=== PATIENT | female | born 1980 | race Caucasian/White ===

== ENCOUNTER 2018-06-13 05:23 | Emergency (ER) | payer MEDICAID ==
[2018-06-13] MEDS ORDERED: KETOROLAC 30 MG/ML VIAL IM ONE (05:55)
[2018-06-13] MEDS ORDERED: ORPHENADRINE CITRATE 60MG/2ML VIAL IM ONE (05:55)
--- NOTE | 2018-06-13 06:02 | Emergency Department Record ---
History of Present Illness - General Chief Complaint: Back Pain/Injury Stated Complaint: BACK PAIN Time Seen by Provider: 06/13/18 05:42 Source: Patient Mode of Arrival: Ambulatory Limitations: No limitations - History of Present Illness Initial Comments: pt injured her back 06/01 and has been taking motrin. 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 she woke up this morning and had difficulty turning her head and pain in her neck and thoracic area. she denies numbness or weakness Complaint: Back pain, Back injury Onset/Timin -: Days(s) Similar Symptoms Previously: No Place: Home Radiation: None Severity: Severe Severity scale (1-10): 10 Quality: Dull, Sharp, Stabbing Consistency: Constant, Getting worse Improves With: Medication, Other Worsens With: Movement Context: Bending, While lifting Associated Symptoms: Denies other symptoms Treatments Prior to Arrival: Heat therapy, NSAIDS - Related Data Home Medications Medication Instructions Recorded Confirmed Last Taken Amlodipine Besylate [Norvasc] 5 mg PO DAILY 06/13/18 06/13/18 Unknown Colestipol HCl 1 gm PO BID 06/13/18 06/13/18 Unknown Gabapentin [Neurontin] 600 mg PO TID 06/13/18 06/13/18 Unknown Hydroxychloroquine Sulfate 200 mg PO DAILY 06/13/18 06/13/18 Unknown [Plaquenil] Lacosamide [Vimpat] 100 mg PO BID 06/13/18 06/13/18 Unknown Mycophenolate Mofetil [Cellcept] 500 mg PO BID 06/13/18 06/13/18 Unknown Trazodone HCl 50 mg PO QHS 06/13/18 06/13/18 Unknown Vortioxetine Hydrobromide 20 mg PO DAILY 06/13/18 06/13/18 Unknown [Brintellix] Previous Rx's Medication Instructions Recorded Cyclobenzaprine HCl [Flexeril] 10 mg PO TID #14 tablet 06/13/18 Hydrocodone/Acetaminophen [[place] 1 each PO Q6HR #7 tablet 06/13/18 5-325 Tablet] Ibuprofen [Motrin 600Mg] 600 mg PO Q6H #20 tablet 06/13/18 Allergies Allergy/AdvReac Type Severity Reaction Status Date / Time levofloxacin [From Levaquin] Allergy SWELLING Verified 06/13/18 05:39 (GENERAL) Penicillins Allergy ANAPHYLAXIS Verified 06/13/18 05:39 Travel Screening - Travel/Exposure Within Last 30 Days Have you traveled within the last 30 days?: No - Travel/Exposure Within Last Year Have you traveled outside the [place] in the last year?: No - Additonal Travel Details Have you been exposed to anyone with a communicable illness?: No - Travel Symptoms Symptom Screening: None Review of Systems Reviewed: No additional complaints except as noted below Constitutional: Reports: As per HPI. Denies: Chills, Fever, Malaise, Night sweats, Weakness, Weight change Eyes: Reports: As per HPI. Denies: Eye discharge, Eye pain, Photophobia, Vision change ENT: Reports: As per HPI. Denies: Congestion, Dental pain, Ear pain, Epistaxis , Hearing loss, Throat pain Respiratory: Reports: As per HPI. Denies: Cough, Dyspnea, Hemoptysis, Stridor, Wheezes Cardiovascular: Reports: As per HPI. Denies: Arrhythmia, Chest pain, Dyspnea on exertion, Edema, Murmurs, Orthopnea, Palpitations, Paroxysmal nocturnal dyspnea, Rheumatic Fever, Syncope Endocrine: Reports: As per HPI. Denies: Fatigue, Heat or cold intolerance, Polydipsia, Polyuria Gastrointestinal: Reports: As per HPI. Denies: Abdominal pain, Constipation, Diarrhea, Hematemesis, Hematochezia, Melena, Nausea, Vomiting Genitourinary: Reports: As per HPI. Denies: Abnormal menses, Discharge, Dyspareunia, Dysuria, Frequency, Hematuria, Incontinence, Retention, Urgency Musculoskeletal: Reports: As per HPI, Back pain, Neck pain. Denies: Arthralgia , Gout, Joint swelling, Myalgia Skin: Reports: As per HPI. Denies: Bruising, Change in color, Change in hair/ nails, Lesions, Pruritus, Rash Neurological: Reports: As per HPI. Denies: Abnormal gait, Confusion, Headache, Numbness, Paresthesias, Seizure, Tingling, Tremors, Vertigo, Weakness Psychiatric: Reports: As per HPI. Denies: Anxiety, Auditory hallucinations, Depression, Homicidal thoughts, Suicidal thoughts, Visual hallucinations Hematological/Lymphatic: Reports: As per HPI. Denies: Anemia, Blood Clots, Easy bleeding, Easy bruising, Swollen glands Past Medical History - SOCIAL HISTORY Smoking Status: Current every day smoker Alcohol Use: None Drug Use: None - RESPIRATORY Hx Respiratory Disorders: No - CARDIOVASCULAR Hx Cardio Disorders: No - NEURO Hx Neuro Disorders: Yes Hx Seizures: Yes (last one about 5 years ago) - GI Hx GI Disorders: Yes Hx Irritable Bowel: Yes - Hx Genitourinary Disorders: Yes Hx UTI: Yes Comment:: lupus - ENDOCRINE Hx Endocrine Disorders: No - MUSCULOSKELETAL Hx Musculoskeletal Disorders: No - PSYCH Hx Psych Problems: Yes Hx Depression: Yes - HEMATOLOGY/ONCOLOGY Hx Hematology/Oncology Disorders: Yes Hx Cancer: Yes (cervical) Hx Chemotherapy: Yes (2011) Family Medical History Any Significant Family History?: No Physical Exam - General General Appearance: Alert, Oriented x3, Cooperative, Mild distress - Head Head exam: Normal inspection - Eye Eye exam: Normal appearance, PERRL, EOMI Pupils: Normal accommodation - ENT ENT exam: Normal exam, Mucous membranes moist, Normal external ear exam, Normal orophraynx Ear exam: Normal external inspection. negative: External canal tenderness Nasal Exam: Normal inspection. negative: Discharge, Sinus tenderness Mouth exam: Normal external inspection, Tongue normal Teeth exam: Normal inspection. negative: Dental caries Throat exam: Normal inspection. negative: Tonsillar erythema, Tonsillar exudate - Neck Neck exam: Tenderness (in musculature). negative: Normal inspection, Full ROM - Respiratory Respiratory exam: Normal lung sounds bilaterally. negative: Respiratory distress - Cardiovascular Cardiovascular Exam: Normal rhythm, Normal heart sounds, Tachycardia - GI/Abdominal GI/Abdominal exam: Soft, Normal bowel sounds. negative: Tenderness - Rectal Rectal exam: Deferred - exam: Deferred - Extremities Extremities exam: Normal inspection, Full ROM, Normal capillary refill. negative: Tenderness - Back Back exam: Reports: Normal inspection, Full ROM. Denies: Muscle spasm, Rash noted, Tenderness - Neurological Neurological exam: Alert, CN II-XII intact, Normal gait, Oriented X3 - Psychiatric Psychiatric exam: Normal affect, Normal mood - Skin Skin exam: Dry, Intact, Normal color, Warm Course Vital Signs 06/13/18 05:30 Temperature 98.1 F Pulse Rate 107 H Respiratory 18 Rate Blood Pressure 126/85 Pulse Ox 99 - Reevaluation(s) Reevaluation #1: 06/13/18 07:13 pt feels better Disposition Disposition: Discharge Clinical Impression: Cervical strain, acute Qualifiers: Encounter type: initial encounter Qualified Code(s): S16.1XXA - Strain of muscle, fascia and tendon at neck level, initial encounter Disposition: Home, Self-Care Condition: (1) Good Instructions: Cervical Strain (ED) Additional Instructions: follow up with family doctor. return sooner if worse. ice to sore areas rotated w moist heat Prescriptions: Hydrocodone/Acetaminophen [[place] 5-325 Tablet] 1 each PO Q6HR #7 tablet Cyclobenzaprine HCl [Flexeril] 10 mg PO TID #14 tablet Ibuprofen [Motrin 600Mg] 600 mg PO Q6H #20 tablet Forms: Patient Portal Access Quality - Quality Measures Quality Measures: N/A - Blood Pressure Screening Does Patient Have Any of the Following: No Blood Pressure Classification: Pre-Hypertensive BP Reading Systolic Measurement: 126 Diastolic Measurement: 85 Screening for High Blood Pressure: < Pre-Hypertensive BP, F/U Documented > [ G8950] Pre-Hypertensive Follow-up Interventions: Follow-up with rescreen every year.
--- NOTE | 2018-06-15 06:21 | RADIOLOGY REPORT ---
DATE: 06/13/2018 at 6:15 a.m. EXAM: AP AND LATERAL CERVICAL SPINE. HISTORY: LEFT-SIDED UPPER NECK PAIN RADIATING DOWN TO THE LEFT HIP. FALL ON JUNE 01. TECHNIQUE: AP, lateral, and odontoid views of the cervical spine were obtained. COMPARISON: Thoracic spine series from the same date. FINDINGS: There is normal cervical alignment. The craniocervical and cervical thoracic junctions are normal. The intervertebral disc spaces and vertebral body heights are maintained. There are no significant degenerative changes. There is no acute fracture, subluxation, or prevertebral soft tissue swelling. IMPRESSION: NORMAL CERVICAL SPINE. JOB NUMBER: [id number] MTDD
--- NOTE | 2018-06-15 06:25 | RADIOLOGY REPORT ---
DATE: 06/13/2018 at 6:24 a.m. EXAM: THREE-VIEW THORACIC SPINE. HISTORY: LIFTING INJURY AND FALL. LEFT UPPER NECK PAIN WITH RADIATION DOWN THE LEFT SIDE INTO THE LEFT HIP. TECHNIQUE: AP, lateral, and swimmer's views of the thoracic spine were obtained. COMPARISON: None. FINDINGS: There is levoconvex curvature within the thoracic spine which may be positional in nature. The thoracic alignment is otherwise normal. The thoracic intervertebral disc spaces and vertebral body heights are maintained. There is no acute fracture, subluxation, or destructive process. The visualized ribs appear intact. IMPRESSION: 1. MILD LEVOCONVEX CURVATURE WHICH MAY BE POSITIONAL IN NATURE. 2. NO ACUTE THORACIC SPINE PATHOLOGY. JOB NUMBER: [id number] MTDD
== END 2018-06-13 07:28 | disposition home or self-care (01) ==
LOC: ER 05:23
DX: S16.1XXA Strain of muscle, fascia and tendon at neck level, initial encounter (principal); M54.6 Pain in thoracic spine; X58.XXXA Exposure to other specified factors, initial encounter; F17.210 Nicotine dependence, cigarettes, uncomplicated; Y92.009 Unspecified place in unspecified non-institutional (private) residence as the place of occurrence of the external cause
CPT/HCPCS: 99283; 96372; 99284; 72040; 72072; J1885; J2360

== ENCOUNTER 2018-08-08 19:25 | Emergency (ER) | payer MEDICAID ==
[2018-08-08] MEDS ORDERED: DIPHENHYDRAMINE HCL 50 MG/ML VIAL IVP ONE (19:36)
[2018-08-08] MEDS ORDERED: KETOROLAC 30 MG/ML VIAL IVP ONE (19:36)
[2018-08-08] MEDS ORDERED: METOCLOPRAMIDE HCL 10 MG/2 ML VIAL IVP ONE (19:36)
--- NOTE | 2018-08-08 19:43 | Emergency Department Record ---
History of Present Illness - General Chief Complaint: Headache Migraine Stated Complaint: HEADACHE,VOMITING,SINUS INFECT Time Seen by Provider: 08/08/18 19:28 Source: Patient Mode of Arrival: Ambulatory Limitations: No limitations - History of Present Illness Initial Comments: 38 yo female presents to ED for evaluation of headache symptoms similar to previous migraine headaches that began earlier today. Patient does however report nausea/vomiting today which is different from her usual headaches. Patient denies fever/stiff neck symptoms, does however report a history of cervical cancer now in remission ([id number]) as well as Lupus and RA that she takes plaquenel for. Patient tried taking Ibuprofen earlier today but vomited the medication back up. MD Complaint: Headache Onset/Timin -: Days(s) Onset Description: Gradual Location: Diffuse Severity: Moderate Quality: Throbbing, Similar to previous headaches Consistency: Constant Improves With: Nothing Worsens With: None Associated Symptoms: Nausea, Vomiting Treatments Prior to Arrival: Ibuprofen - Related Data Home Medications Medication Instructions Recorded Confirmed Last Taken Vortioxetine Hydrobromide 20 mg PO DAILY 08/08/18 08/08/18 Unknown [Trintellix] Previous Rx's Medication Instructions Recorded Ibuprofen [Motrin 600Mg] 600 mg PO Q6H #20 tablet 06/13/18 Doxycycline Hyclate 100 mg PO BID #19 tab. 08/08/18 Allergies Allergy/AdvReac Type Severity Reaction Status Date / Time levofloxacin [From Levaquin] Allergy SWELLING Verified 06/13/18 05:39 (GENERAL) Penicillins Allergy ANAPHYLAXIS Verified 06/13/18 05:39 clarithromycin [From Biaxin] AdvReac VOMITING Verified 08/08/18 19:39 Review of Systems Constitutional: Denies: Chills, Fever, Malaise, Night sweats Eyes: Denies: Eye discharge, Eye pain ENT: Denies: Congestion, Ear pain Respiratory: Denies: Cough, Dyspnea Cardiovascular: Denies: Chest pain, Dyspnea on exertion Endocrine: Denies: Fatigue, Heat or cold intolerance Gastrointestinal: Reports: Nausea, Vomiting. Denies: Abdominal pain Genitourinary: Denies: Incontinence, Retention Musculoskeletal: Denies: Arthralgia, Back pain Skin: Denies: Bruising, Change in color Neurological: Reports: Headache. Denies: Abnormal gait, Confusion, Seizure Psychiatric: Denies: Anxiety Hematological/Lymphatic: Denies: Anemia, Blood Clots Past Medical History - SOCIAL HISTORY Smoking Status: Current every day smoker Drug Use: None - RESPIRATORY Hx Respiratory Disorders: No - CARDIOVASCULAR Hx Cardio Disorders: No - NEURO Hx Neuro Disorders: Yes Hx Seizures: Yes (last one about 5 years ago) - GI Hx GI Disorders: Yes Hx Irritable Bowel: Yes - Hx Genitourinary Disorders: Yes Hx UTI: Yes Comment:: lupus - ENDOCRINE Hx Endocrine Disorders: No - MUSCULOSKELETAL Hx Musculoskeletal Disorders: No - PSYCH Hx Psych Problems: Yes Hx Depression: Yes - HEMATOLOGY/ONCOLOGY Hx Hematology/Oncology Disorders: Yes Hx Cancer: Yes (cervical) Hx Chemotherapy: Yes (2011) Physical Exam - General General Appearance: Alert, Oriented x3, Cooperative, Moderate distress Limitations: No limitations - Head Head exam: Atraumatic, Normocephalic, Normal inspection Head exam detail: negative: Abrasion, Contusion, Alcocer's sign, General tenderness, Hematoma, Laceration - Eye Eye exam: Normal appearance, PERRL. negative: Conjunctival injection, Periorbital swelling, Periorbital tenderness, Scleral icterus - ENT Ear exam: negative: Auricular hematoma, Auricular trauma Nasal Exam: negative: Active bleeding, Discharge, Dried blood, Foreign body Mouth exam: negative: Drooling, Laceration, Muffled voice, Tongue elevation - Neck Neck exam: Normal inspection. negative: Meningismus, Tenderness - Respiratory Respiratory exam: Normal lung sounds bilaterally. negative: Rales, Respiratory distress, Rhonchi, Stridor - Cardiovascular Cardiovascular Exam: Regular rate, Normal rhythm, Normal heart sounds - GI/Abdominal GI/Abdominal exam: Soft. negative: Rebound, Rigid, Tenderness - Rectal Rectal exam: Deferred - exam: Deferred - Extremities Extremities exam: Normal inspection. negative: Pedal edema, Tenderness - Back Back exam: Denies: CVA tenderness (R), CVA tenderness (L) - Neurological Neurological exam: Alert, CN II-XII intact, Normal gait, Oriented X3. negative : Motor sensory deficit - Psychiatric Psychiatric exam: Normal affect, Normal mood - Skin Skin exam: Normal color. negative: Abrasion Type of lesion: negative: abrasion Course Vital Signs 08/08/18 19:32 Temperature 98.2 F Pulse Rate [ 98 H Pulse Ox Probe] Respiratory 24 Rate Blood Pressure 130/92 [Left Arm] Pulse Ox 98 - Reevaluation(s) Reevaluation #1: 08/08/18 19:41 Patient was seen and examined, hsitory and physical examination are c/w migraine -type headache. Will image the brain with CT as the patient does have cancer history, denies nausea/vomiting with previous migraine headaches. Neurological examination demonstrates no deficits on exam. No meningeal signs on examination. Will treat with Reglan, Toradol, Benadryl, and NS for her headache symptoms. Reevaluation #2: 08/08/18 20:51 CT Brain: No acute intracranial process Maxillary/sphenoid sinusitis Patient was updated on all results, reports significant improvement in her headache symptoms. Will initiate treatment for sinusitis with Doxycycline as directed. Patient appears stable for discharge at this time. Disposition Disposition: Discharge Clinical Impression: Headache Qualifiers: Headache type: unspecified Headache chronicity pattern: acute headache Intractability: not intractable Qualified Code(s): R51 - Headache Sinusitis Qualifiers: Sinusitis location: maxillary Chronicity: unspecified Qualified Code(s): J32.0 - Chronic maxillary sinusitis Disposition: Home, Self-Care Condition: (2) Stable Instructions: Acute Headache (ED) Additional Instructions: Return to ED if your symptoms worsen or if you have any concerns. Doxycycline as directed. Follow-up with your family doctor in 3-5 days as directed. Prescriptions: Doxycycline Hyclate 100 mg PO BID #19 tab.dr Forms: Patient Portal Access Time of Disposition: 20:54 Quality - Quality Measures Quality Measures: N/A - Blood Pressure Screening Does Patient Have Any of the Following: No Blood Pressure Classification: Hypertensive Reading Systolic Measurement: 130 Diastolic Measurement: 92 Screening for High Blood Pressure: < First Hypertensive BP, F/U Documented > [ G8950] First Hypertensive Follow-up Interventions: Referral to alternative/primary care provider.
[2018-08-08] MEDS ORDERED: 0.9 % SODIUM CHLORIDE 1000ML 1,000 ML IV SCH (19:45)
[2018-08-08] MEDS ORDERED: DOXYCYCLINE HYCLATE 100 MG CAPSULE PO ONE (20:55)
--- NOTE | 2018-08-10 10:48 | CT SCAN REPORT ---
EXAM: HEAD CT WITHOUT CONTRAST HISTORY: HEADACHE CAUSING VOMITING AND NAUSEA, SINUS DRAINAGE. TECHNIQUE: Axial CT scan of the head was performed without IV contrast. Comparison: None. FINDINGS: No definite acute intracranial hemorrhage identified. No focal mass effect or midline shift apparent. No definite acute infarct or intracranial mass lesion seen. Moderate membrane thickening inferiorly in the frontal sinuses. Prominent membrane thickening in the ethmoids bilaterally. Cyst or polyp in the left sphenoid sinus with mild membrane thickening elsewhere in the sphenoid sinuses bilaterally. Prominent opacification in both maxillary antra probably representing membrane thickening although likely with a small amount of fluid on the right. The mastoids appear clear. IMPRESSION: 1. NO DEFINITE ACUTE INTRACRANIAL HEMORRHAGE OR FOCAL MASS EFFECT EVIDENT. 2. OPACIFICATION OF THE PARANASAL SINUSES TO VARIABLE DEGREES DETAILED ABOVE , PROBABLY WITH AN AIR FLUID LEVEL IN THE RIGHT MAXILLARY SINUS. JOB NUMBER: [id number] MTDD
== END 2018-08-08 21:06 | disposition home or self-care (01) ==
LOC: ER 19:25
DX: J32.0 Chronic maxillary sinusitis (principal); R51 Headache; R11.2 Nausea with vomiting, unspecified; F17.210 Nicotine dependence, cigarettes, uncomplicated; Z85.41 Personal history of malignant neoplasm of cervix uteri
CPT/HCPCS: 99284 ×2; 96374; 96375; 70450; J1885; J1200; J2765; J7030

== ENCOUNTER 2018-09-03 18:06 | Emergency (ER) | payer MEDICAID ==
--- NOTE | 2018-09-03 18:19 | Emergency Department Record ---
History of Present Illness - General Chief complaint: Extremity Problem Stated complaint: LEFT SHOULDER INJURY Time Seen by Provider: 09/03/18 18:14 Source: Patient Mode of Arrival: Ambulatory Limitations: No limitations - History of Present Illness Initial comments: 38 yo female presents to ED for evaluation of shoulder pain following injury approximately 1 hour ago. 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 Patient reports pain with movement of the shoulder, denies pain below the shoulder. Patient reports a history history of lupus and RA. MD Complaint: Joint pain Onset/Timin -: Hour(s) Location: Left, Shoulder History of Same: No Radiation: Proximal, Distal Severity scale (1-10): 10 Quality: Sharp Consistency: Constant Improves with: Immobilization Worsens with: Exertion Associated Symptoms: Denies other symptoms - Related Data Previous Rx's Medication Instructions Recorded Ibuprofen [Motrin 600Mg] 600 mg PO Q6H #20 tablet 06/13/18 Allergies Allergy/AdvReac Type Severity Reaction Status Date / Time levofloxacin [From Levaquin] Allergy SWELLING Verified 09/03/18 18:09 (GENERAL) Penicillins Allergy ANAPHYLAXIS Verified 09/03/18 18:09 clarithromycin [From Biaxin] AdvReac VOMITING Verified 09/03/18 18:09 Travel Screening - Travel/Exposure Within Last 30 Days Have you traveled within the last 30 days?: No Review of Systems Constitutional: Denies: Chills, Fever, Malaise, Night sweats Eyes: Denies: Eye discharge, Eye pain ENT: Denies: Congestion, Ear pain, Epistaxis Respiratory: Denies: Cough, Dyspnea Cardiovascular: Denies: Chest pain, Dyspnea on exertion Endocrine: Denies: Fatigue, Heat or cold intolerance Gastrointestinal: Denies: Abdominal pain, Nausea, Vomiting Genitourinary: Denies: Incontinence, Retention Musculoskeletal: Reports: Arthralgia. Denies: Back pain, Gout Skin: Denies: Bruising, Change in color Neurological: Denies: Abnormal gait, Confusion, Headache, Seizure Psychiatric: Denies: Anxiety Hematological/Lymphatic: Denies: Anemia, Blood Clots Past Medical History - SOCIAL HISTORY Smoking Status: Current every day smoker Drug Use: None - RESPIRATORY Hx Respiratory Disorders: No - CARDIOVASCULAR Hx Cardio Disorders: No - NEURO Hx Neuro Disorders: Yes Hx Seizures: Yes (last one about 5 years ago) - GI Hx GI Disorders: Yes Hx Irritable Bowel: Yes - Hx Genitourinary Disorders: Yes Hx UTI: Yes Comment:: lupus - ENDOCRINE Hx Endocrine Disorders: No - MUSCULOSKELETAL Hx Musculoskeletal Disorders: No - PSYCH Hx Psych Problems: Yes Hx Depression: Yes - HEMATOLOGY/ONCOLOGY Hx Hematology/Oncology Disorders: Yes Hx Cancer: Yes (cervical) Hx Chemotherapy: Yes (2011) Physical Exam - General General Appearance: Alert, Oriented x3, Cooperative, Moderate distress Limitations: No limitations - Head Head exam: Atraumatic, Normocephalic, Normal inspection Head exam detail: negative: Abrasion, Contusion, Alcocer's sign, General tenderness, Hematoma, Laceration - Eye Eye exam: Normal appearance. negative: Conjunctival injection, Periorbital swelling, Periorbital tenderness, Scleral icterus - ENT Ear exam: negative: Auricular hematoma, Auricular trauma Nasal Exam: negative: Active bleeding, Discharge, Dried blood, Foreign body Mouth exam: negative: Drooling, Laceration, Muffled voice, Tongue elevation - Neck Neck exam: Normal inspection. negative: Meningismus, Tenderness - Respiratory Respiratory exam: Normal lung sounds bilaterally. negative: Rales, Respiratory distress, Rhonchi, Stridor - Cardiovascular Cardiovascular Exam: Regular rate, Normal rhythm, Normal heart sounds - GI/Abdominal GI/Abdominal exam: Soft. negative: Rebound, Rigid, Tenderness - Rectal Rectal exam: Deferred - exam: Deferred - Extremities Extremities exam: Normal inspection. negative: Pedal edema, Tenderness - Back Back exam: Denies: CVA tenderness (R), CVA tenderness (L) - Neurological Neurological exam: Alert, Normal gait, Oriented X3 - Psychiatric Psychiatric exam: Normal affect, Normal mood - Skin Skin exam: Normal color. negative: Abrasion Type of lesion: negative: abrasion Course - Reevaluation(s) Reevaluation #1: 09/03/18 18:34 Left shoulder: No acute process identified Patient was updated on her radiograph results, will place in sling with referral for Orthopedics follow-up next week. Disposition Disposition: Discharge Clinical Impression: Left shoulder strain Qualifiers: Encounter type: initial encounter Qualified Code(s): S46.912A - Strain of unspecified muscle, fascia and tendon at shoulder and upper arm level, left arm , initial encounter Disposition: Home, Self-Care Condition: (2) Stable Instructions: Rotator Cuff Injury (ED) Additional Instructions: Return to ED if your symptoms worsen or if you have any concerns. Ibuprofen as directed. Follow-up with Dr. Shabazz in 3-5 days as directed. Referrals: KEVIN SHABAZZ [DOCTOR OF OSTEOPATH] - [facility] [Provider Group] Forms: Patient Portal Access Time of Disposition: 18:36 Quality - Quality Measures Quality Measures: N/A - Blood Pressure Screening Does Patient Have Any of the Following: No Blood Pressure Classification: Hypertensive Reading Systolic Measurement: 131 Diastolic Measurement: 99 Screening for High Blood Pressure: < First Hypertensive BP, F/U Documented > [ G8950] First Hypertensive Follow-up Interventions: Referral to alternative/primary care provider.
--- NOTE | 2018-09-06 17:31 | RADIOLOGY REPORT ---
EXAM: SHOULDER, LEFT HISTORY: LEFT ARM INJURY ABOUT AN HOUR AGO. TECHNIQUE: Three views left shoulder. COMPARISON: None. ENCOUNTER: Initial. FINDINGS: The left shoulder appears intact with no definite fracture or dislocation identified. IMPRESSION: LEFT SHOULDER APPEARS NEGATIVE. JOB NUMBER: [id number] MTDD
== END 2018-09-03 18:49 | disposition home or self-care (01) ==
LOC: ER 18:06
DX: S46.912A Strain of unspecified muscle, fascia and tendon at shoulder and upper arm level, left arm, initial encounter (principal); F17.210 Nicotine dependence, cigarettes, uncomplicated; X50.0XXA Overexertion from strenuous movement or load, initial encounter; Y93.F9 Activity, other caregiving
CPT/HCPCS: 99283

== ENCOUNTER 2018-11-07 12:51 | Emergency (ER) | payer MEDICAID ==
[2018-11-07] MEDS ORDERED: KETOROLAC 30 MG/ML VIAL IM ONE (13:28)
[2018-11-07] MEDS ORDERED: CYCLOBENZAPRINE 10MG TABLET PO ONE (13:28)
--- NOTE | 2018-11-07 13:34 | Emergency Department Record ---
History of Present Illness - General Chief Complaint: Back Pain/Injury Stated Complaint: BACK SPASMS Time Seen by Provider: 11/07/18 13:22 Source: Patient Mode of Arrival: Ambulatory Limitations: No limitations - History of Present Illness Initial Comments: 38 yo female presents with back spasm after MRI today. She has had about 6 months of pain and spasm. She has seen her doctor, a travel assistant, and a spine doctor. For months she has had pain, spasms, and a numb or tingling feeling in her legs. No changes with bowel or bladder function. 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 The spasms a worse after the MRI at [facility]. Complaint: Back pain Onset/Timin -: Days(s) Similar Symptoms Previously: No Place: Home Severity: Moderate Severity scale (1-10): 8 Quality: Sharp Consistency: Constant, Intermittent Improves With: None Context: Unknown Associated Symptoms: Denies other symptoms - Related Data Home Medications Medication Instructions Recorded Confirmed Last Taken Prednisone [Prednisone 20Mg] 20 mg PO DAILY 11/07/18 11/07/18 Unknown Previous Rx's Medication Instructions Recorded Ibuprofen [Motrin 600Mg] 600 mg PO Q6H #20 tablet 06/13/18 Cyclobenzaprine HCl [Flexeril] 10 mg PO TID #30 tablet 11/07/18 Allergies Allergy/AdvReac Type Severity Reaction Status Date / Time levofloxacin [From Levaquin] Allergy SWELLING Verified 11/07/18 13:23 (GENERAL) Penicillins Allergy ANAPHYLAXIS Verified 11/07/18 13:23 clarithromycin [From Biaxin] AdvReac VOMITING Verified 11/07/18 13:23 Travel Screening - Travel/Exposure Within Last 30 Days Have you traveled within the last 30 days?: No Review of Systems Constitutional: Denies: Chills, Fever, Malaise, Weakness Eyes: Denies: Eye discharge ENT: Denies: Congestion, Throat pain Respiratory: Denies: Cough Cardiovascular: Denies: Chest pain, Palpitations, Syncope Endocrine: Denies: Fatigue Gastrointestinal: Denies: Abdominal pain, Diarrhea, Nausea, Vomiting Genitourinary: Denies: Dysuria, Urgency Musculoskeletal: Reports: As per HPI, Back pain, Myalgia. Denies: Neck pain Skin: Denies: Bruising, Change in color, Rash Neurological: Reports: As per HPI, Numbness, Tingling. Denies: Confusion, Headache, Vertigo, Weakness Psychiatric: Denies: Anxiety Hematological/Lymphatic: Denies: Blood Clots, Easy bleeding, Easy bruising, Swollen glands Past Medical History - SOCIAL HISTORY Smoking Status: Current every day smoker Alcohol Use: None Drug Use: None - RESPIRATORY Hx Respiratory Disorders: Yes Hx Asthma: Yes (childhood) - CARDIOVASCULAR Hx Cardio Disorders: No - NEURO Hx Neuro Disorders: Yes Hx Seizures: Yes (last one about 5 years ago) - GI Hx GI Disorders: Yes Hx Irritable Bowel: Yes - Hx Genitourinary Disorders: Yes Hx UTI: Yes Comment:: lupus - ENDOCRINE Hx Endocrine Disorders: No - MUSCULOSKELETAL Hx Musculoskeletal Disorders: No Comment:: RA, lupus - PSYCH Hx Psych Problems: Yes Hx Depression: Yes - HEMATOLOGY/ONCOLOGY Hx Hematology/Oncology Disorders: Yes Hx Cancer: Yes (cervical) Hx Chemotherapy: Yes (2011) Family Medical History Any Significant Family History?: No Physical Exam - General General Appearance: Alert, Oriented x3, Cooperative, No acute distress Limitations: No limitations - Head Head exam: Atraumatic, Normal inspection - Eye Eye exam: Normal appearance, PERRL. negative: Conjunctival injection, Scleral icterus - ENT ENT exam: Normal exam Ear exam: Normal external inspection Nasal Exam: Normal inspection Mouth exam: Normal external inspection - Neck Neck exam: Normal inspection - Respiratory Respiratory exam: Normal lung sounds bilaterally. negative: Respiratory distress - Cardiovascular Cardiovascular Exam: Regular rate, Normal rhythm, Normal heart sounds - GI/Abdominal GI/Abdominal exam: Soft. negative: Tenderness - Rectal Rectal exam: Deferred - exam: Deferred - Extremities Extremities exam: Full ROM, Normal capillary refill. negative: Calf tenderness, Joint swelling, Pedal edema, Tenderness - Back Back exam: Reports: Muscle spasm, Paraspinal tenderness, Tenderness. Denies: CVA tenderness (R), CVA tenderness (L), Full ROM - Neurological Neurological exam: Alert, Oriented X3, Reflexes normal (+2 patella, no weakness of foot flexion or extension). negative: Altered, Motor sensory deficit - Psychiatric Psychiatric exam: Normal affect, Normal mood - Skin Skin exam: Dry, Intact, Normal color, Warm Course Vital Signs 11/07/18 13:20 Temperature 98.6 F Pulse Rate 95 H Respiratory 20 Rate Blood Pressure 149/82 Pulse Ox 96 Disposition Disposition: Discharge Clinical Impression: Back muscle spasm Disposition: Home, Self-Care Condition: (1) Good Instructions: Muscle Spasm (ED) Additional Instructions: Call your doctor for the next available follow up appointment Return to the ER for a recheck if worse, any new concerns or questions Take the prescriptions provided as directed Call to get your MRI results first of the week Prescriptions: Cyclobenzaprine HCl [Flexeril] 10 mg PO TID #30 tablet Forms: Patient Portal Access Time of Disposition: 13:33 Quality - Quality Measures Quality Measures: N/A - Blood Pressure Screening Does Patient Have Any of the Following: No Blood Pressure Classification: Pre-Hypertensive BP Reading Systolic Measurement: 149 Diastolic Measurement: 82 Screening for High Blood Pressure: < Pre-Hypertensive BP, F/U Documented > [G8950] Pre-Hypertensive Follow-up Interventions: Referral to alternative/primary care provider.
== END 2018-11-07 14:10 | disposition home or self-care (01) ==
LOC: ER 12:51
DX: M62.830 Muscle spasm of back (principal); F17.210 Nicotine dependence, cigarettes, uncomplicated
CPT/HCPCS: 99283 ×2; 96372; J1885

== ENCOUNTER 2019-01-01 09:57 | Emergency (ER) | payer MEDICAID ==
[2019-01-01] MEDS ORDERED: GABAPENTIN 300 MG CAPSULE PO SCH (10:15)
--- NOTE | 2019-01-01 10:18 | Emergency Department Record ---
History of Present Illness - General Chief Complaint: Seizures Stated Complaint: POSSIBLE SEIZURE Time Seen by Provider: 01/01/19 10:07 Source: Patient, EMS, RN notes reviewed - History of Present Illness Initial Comments: patient presented via ambulance and had a syncopal episode and EMS called and she requested [facility] and environmental geologist said she was clear maybe a little postictal but not really. Patient denies head or neck pain and is alert and oriented times three and she informed me she has both seizures last one one year ago and vasovagal syncope and she sees [facility] and primary is Dr Saravia. 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 Patient said she forgot to take her meds this am. Patient said her seizures are different than this she is usually postictal longer and she is fatigued and her vasovagal syncope is like this and she is aler and oriented after they happen. MD Complaint: Possible seizure - Related Data Previous Rx's Medication Instructions Recorded Ibuprofen [Motrin 600Mg] 600 mg PO Q6H #20 tablet 06/13/18 Allergies Allergy/AdvReac Type Severity Reaction Status Date / Time levofloxacin [From Levaquin] Allergy SWELLING Verified 01/01/19 10:07 (GENERAL) Penicillins Allergy ANAPHYLAXIS Verified 01/01/19 10:07 clarithromycin [From Biaxin] AdvReac VOMITING Verified 01/01/19 10:07 Review of Systems Reviewed: No additional complaints except as noted below Constitutional: Reports: As per HPI. Denies: Chills, Fever, Malaise, Night sweats, Weakness, Weight change Eyes: Reports: As per HPI. Denies: Eye discharge, Eye pain, Photophobia, Vision change ENT: Reports: As per HPI. Denies: Congestion, Dental pain, Ear pain, Epistaxis, Hearing loss, Throat pain Respiratory: Reports: As per HPI. Denies: Cough, Dyspnea, Hemoptysis, Stridor, Wheezes Cardiovascular: Reports: As per HPI. Denies: Arrhythmia, Chest pain, Dyspnea on exertion, Edema, Murmurs, Orthopnea, Palpitations, Paroxysmal nocturnal dyspnea, Rheumatic Fever, Syncope Endocrine: Reports: As per HPI. Denies: Fatigue, Heat or cold intolerance, Polydipsia, Polyuria Gastrointestinal: Reports: As per HPI. Denies: Abdominal pain, Constipation, Diarrhea, Hematemesis, Hematochezia, Melena, Nausea, Vomiting Genitourinary: Reports: As per HPI. Denies: Abnormal menses, Discharge, Dyspareunia, Dysuria, Frequency, Hematuria, Incontinence, Retention, Urgency Musculoskeletal: Reports: As per HPI. Denies: Arthralgia, Back pain, Gout, Joint swelling, Myalgia, Neck pain Skin: Reports: As per HPI. Denies: Bruising, Change in color, Change in hair/nails, Lesions, Pruritus, Rash Neurological: Reports: As per HPI. Denies: Abnormal gait, Confusion, Headache, Numbness, Paresthesias, Seizure, Tingling, Tremors, Vertigo, Weakness Psychiatric: Reports: As per HPI. Denies: Anxiety, Auditory hallucinations, Depression, Homicidal thoughts, Suicidal thoughts, Visual hallucinations Hematological/Lymphatic: Reports: As per HPI. Denies: Anemia, Blood Clots, Easy bleeding, Easy bruising, Swollen glands Past Medical History - SOCIAL HISTORY Smoking Status: Current every day smoker Drug Use: None - RESPIRATORY Hx Respiratory Disorders: Yes Hx Asthma: Yes (childhood) - CARDIOVASCULAR Hx Cardio Disorders: No - NEURO Hx Neuro Disorders: Yes Hx Seizures: Yes (last one about 5 years ago) - GI Hx GI Disorders: Yes Hx Irritable Bowel: Yes - Hx Genitourinary Disorders: Yes Hx UTI: Yes Comment:: lupus - ENDOCRINE Hx Endocrine Disorders: No - MUSCULOSKELETAL Hx Musculoskeletal Disorders: No Comment:: RA, lupus - PSYCH Hx Psych Problems: Yes Hx Depression: Yes - HEMATOLOGY/ONCOLOGY Hx Hematology/Oncology Disorders: Yes Hx Cancer: Yes (cervical) Hx Chemotherapy: Yes (2011) Physical Exam - General General Appearance: Alert, Oriented x3, Cooperative, No acute distress - Head Head exam: Normal inspection - Eye Eye exam: Normal appearance, PERRL Pupils: Normal accommodation - ENT ENT exam: Normal exam, Mucous membranes moist, Normal external ear exam, Normal orophraynx, TM's normal bilaterally Ear exam: Normal external inspection. negative: External canal tenderness Nasal Exam: Normal inspection. negative: Discharge, Sinus tenderness Mouth exam: Normal external inspection, Tongue normal Teeth exam: Normal inspection. negative: Dental caries Throat exam: Normal inspection. negative: Tonsillar erythema, Tonsillar exudate - Neck Neck exam: Normal inspection, Full ROM. negative: Tenderness - Respiratory Respiratory exam: Normal lung sounds bilaterally. negative: Respiratory distress - Cardiovascular Cardiovascular Exam: Regular rate, Normal rhythm, Normal heart sounds - GI/Abdominal GI/Abdominal exam: Soft, Normal bowel sounds. negative: Tenderness - Rectal Rectal exam: Deferred - exam: Deferred - Extremities Extremities exam: Normal inspection, Full ROM, Normal capillary refill. negative: Tenderness - Back Back exam: Reports: Normal inspection, Full ROM. Denies: Muscle spasm, Rash noted, Tenderness - Neurological Neurological exam: Alert, Normal gait, Oriented X3, Reflexes normal - Psychiatric Psychiatric exam: Normal affect, Normal mood - Skin Skin exam: Dry, Intact, Normal color, Warm Course - Reevaluation(s) Reevaluation #1: patient is feeling better and informed her not to drive and to follow up with family Dr and neurologist in 1-2 weeks 01/01/19 11:50 Medical Decision Making - Data Complexity MDM Data: Labs Ordered and/or Reviewed, EKG Ordered and/or Reviewed (NSR no acute changes on the EKG) - Lab Data Result diagrams: 01/01/19 10:25 01/01/19 10:25 Disposition Clinical Impression: Syncope and collapse, Seizure disorder Hypertension Qualifiers: Hypertension type: essential hypertension Qualified Code(s): I10 - Essential (primary) hypertension Disposition: Home, Self-Care Condition: (1) Good Instructions: Recurrent Seizures in Adults (ED), Syncope (ED) Additional Instructions: No driving till clearred by Dr Farrar to drive. take vimpat med as soon as she gets home Forms: Patient Portal Access Time of Disposition: 11:56 Quality - Quality Measures Quality Measures: N/A - Blood Pressure Screening Does Patient Have Any of the Following: No, Active Dx of HTN Blood Pressure Classification: Hypertensive Reading Systolic Measurement: 166 Diastolic Measurement: 133 Screening for High Blood Pressure: Patient Exclusion, Hx of HTN [G9744]
[2019-01-01] MEDS ORDERED: AMLODIPINE BESYLATE 5MG TAB PO SCH (10:30)
[2019-01-01 10:32] LABS: BASO % 0.5 % (0-6); EOS % 3.2 % (0-6); GRAN % 44.7 % (47-80); HEMATOCRIT 46.9 % (35.0-47.0); HEMOGLOBIN 15.2 gm/dl (11.6-16.0); LYMPH % 42.4 % (16-45); MEAN CELL VOLUME 82.6 fl (81-97); MEAN CORPUSCULAR HEMOGLOBIN 26.7 pg (27-33); MEAN CORPUSCULAR HGB CONC 32.4 g/dl (32-36); MEAN PLATELET VOLUME 9.8 fl (7.4-10.4); MONO % 9.2 % (0-9); PLATELET COUNT 294 K/uL (130-400); RED BLOOD COUNT 5.68 M/uL (3.80-5.40); RED CELL DISTRIBUTION WIDTH 15.5 % (11.5-14.5); WHITE BLOOD COUNT W/O DIFF 7.6 K/uL (4.2-12.2)
[2019-01-01 10:44] LABS: BLOOD UREA NITROGEN 10 mg/dL (6-20); CREATININE 0.9 mg/dL (0.5-0.9); EST GLOMERULAR FILTRATION RATE > 60 mL/min
[2019-01-01 10:47] LABS: GLUCOSE,RANDOM 82 mg/dL (74-109)
[2019-01-01 11:24] LABS: URINE APPEARANCE CLEAR; URINE BILIRUBIN NEGATIVE (NEGATIVE); URINE BLOOD NEGATIVE (NEGATIVE); URINE COLOR YELLOW; URINE GLUCOSE (UA) NEGATIVE (NEGATIVE); URINE KETONE NEGATIVE (NEGATIVE); URINE LEUKOCYTE ESTERASE NEGATIVE (NEGATIVE); URINE NITRITE NEGATIVE (NEGATIVE); URINE PROTEIN NEGATIVE (NEGATIVE); URINE UROBILINOGEN 0.2 E.U./dL (0.20 - 1.00)
== END 2019-01-01 12:25 | disposition home or self-care (01) ==
LOC: ER 09:57
DX: R55 Syncope and collapse (principal); G40.909 Epilepsy, unspecified, not intractable, without status epilepticus; I10 Essential (primary) hypertension; F17.210 Nicotine dependence, cigarettes, uncomplicated
CPT/HCPCS: 80048; 81003; 84484; 85025; 93005; 93010; 99284

== ENCOUNTER 2019-03-16 06:38 | Emergency (ER) | payer MEDICAID ==
--- NOTE | 2019-03-16 07:15 | Emergency Department Record ---
History of Present Illness - General Chief Complaint: Cough Stated Complaint: COUGH Time Seen by Provider: 03/16/19 07:07 Source: Patient Mode of Arrival: Ambulatory - History of Present Illness Initial Comments: 39 yo female presents with a cough with green sputum. The onset was 4 days ago. The last two days she has had fever on and off. No blood in the sputum. No shortness of breath. No nausea, vomiting or diarrhea. She has a history of asthma but no wheeze. She does have a lupus on immune suppressant medications. MD Complaint: Cough, Fever, Nasal congestion Onset/Timin -: Week(s) Quality: Aching Consistency: Constant Improves With: Nothing Worsens With: Nothing Context: Sick contacts Associated Symptoms: Cough Treatments Prior to Arrival: None - Related Data Previous Rx's Medication Instructions Recorded Ibuprofen [Motrin 600Mg] 600 mg PO Q6H #20 tablet 06/13/18 Azithromycin [Zithromax] 250 mg PO DAILY #6 tablet 03/16/19 Allergies Allergy/AdvReac Type Severity Reaction Status Date / Time levofloxacin [From Levaquin] Allergy SWELLING Verified 01/01/19 10:07 (GENERAL) Penicillins Allergy ANAPHYLAXIS Verified 01/01/19 10:07 clarithromycin [From Biaxin] AdvReac VOMITING Verified 01/01/19 10:07 Travel Screening - Travel/Exposure Within Last 30 Days Have you traveled within the last 30 days?: No - Travel Symptoms Symptom Screening: None Review of Systems Constitutional: Reports: Fever, Weakness. Denies: Chills, Malaise Eyes: Reports: Other (eye crusting at times since January). Denies: Eye discharge, Eye pain, Photophobia, Vision change ENT: Reports: Congestion, Ear pain (fullness). Denies: Throat pain Respiratory: Reports: Cough. Denies: Dyspnea, Hemoptysis, Stridor, Wheezes Cardiovascular: Denies: Chest pain, Dyspnea on exertion, Edema, Palpitations, Syncope Endocrine: Denies: Fatigue, Polydipsia, Polyuria Gastrointestinal: Denies: Abdominal pain, Diarrhea, Nausea, Vomiting Genitourinary: Denies: Dysuria, Urgency Musculoskeletal: Denies: Arthralgia, Back pain, Joint swelling, Myalgia Skin: Denies: Bruising, Change in color, Rash Neurological: Denies: Headache, Numbness, Weakness Psychiatric: Denies: Anxiety Hematological/Lymphatic: Denies: Easy bleeding, Easy bruising Past Medical History - SOCIAL HISTORY Smoking Status: Current every day smoker Alcohol Use: None Drug Use: None - RESPIRATORY Hx Respiratory Disorders: Yes Hx Asthma: Yes (childhood) - CARDIOVASCULAR Hx Cardio Disorders: Yes Hx Hypertension: Yes - NEURO Hx Neuro Disorders: Yes Hx Seizures: Yes (last one about 5 years ago) - GI Hx GI Disorders: Yes Hx Irritable Bowel: Yes - Hx Genitourinary Disorders: Yes Hx UTI: Yes Comment:: lupus - ENDOCRINE Hx Endocrine Disorders: No - MUSCULOSKELETAL Hx Musculoskeletal Disorders: Yes Comment:: RA, lupus - PSYCH Hx Psych Problems: Yes Hx Depression: Yes - HEMATOLOGY/ONCOLOGY Hx Hematology/Oncology Disorders: Yes Hx Cancer: Yes (cervical) Hx Chemotherapy: Yes (2011) Family Medical History Any Significant Family History?: No Family Hx Comment (NOT TO BE USED IN PLACE OF ITEMS BELOW): denies Physical Exam - General General Appearance: Alert, Oriented x3, Cooperative, No acute distress Limitations: No limitations - Head Head exam: Atraumatic, Normal inspection - Eye Eye exam: Normal appearance, PERRL. negative: Conjunctival injection, Scleral icterus - ENT ENT exam: Normal exam, Mucous membranes moist Ear exam: Normal external inspection Nasal Exam: Normal inspection Mouth exam: Normal external inspection - Neck Neck exam: Normal inspection - Respiratory Respiratory exam: Normal lung sounds bilaterally, Other (Calm respirations). negative: Accessory muscle use, Chest wall tenderness, Decreased breath sounds, Prolonged expiratory, Rales, Respiratory distress, Rhonchi, Stridor, Wheezes - Cardiovascular Cardiovascular Exam: Regular rate, Normal rhythm, Normal heart sounds Peripheral Pulses: 2+: Radial (R), Radial (L) - GI/Abdominal GI/Abdominal exam: Soft. negative: Tenderness - Rectal Rectal exam: Deferred - exam: Deferred - Extremities Extremities exam: Normal inspection. negative: Tenderness - Back Back exam: Denies: CVA tenderness (R), CVA tenderness (L) - Neurological Neurological exam: Alert, Oriented X3 - Psychiatric Psychiatric exam: Normal affect, Normal mood. negative: Agitated, Anxious - Skin Skin exam: Dry, Intact, Normal color, Warm Course Vital Signs 03/16/19 06:43 Temperature 98.3 F Pulse Rate 84 Respiratory 20 Rate Blood Pressure 124/84 Pulse Ox 99 - Reevaluation(s) Reevaluation #1: 03/16/19 07:26 Normal vitals with no hypoxia or tachycardia We discussed treatment given she is on immune suppressant medications for lupus She has been instructed to hold her Cellcept by her doctors if ill. She will follow her prior instructions from her doctors for this No immediate indication for CXR with normal exam, normal vitals We discussed treatment and reasons to return to the ED Disposition Disposition: Discharge Clinical Impression: Bronchitis Disposition: Home, Self-Care Condition: (1) Good Instructions: Acute Bronchitis (ED) Additional Instructions: Call your doctor for the next available follow up appointment Return to the ER for a recheck if worse, any new concerns or questions Take the prescriptions provided as directed Prescriptions: Azithromycin [Zithromax] 250 mg PO DAILY #6 tablet Forms: Patient Portal Access Time of Disposition: 07:20 Quality - Quality Measures Quality Measures: N/A - Blood Pressure Screening Does Patient Have Any of the Following: No Blood Pressure Classification: Pre-Hypertensive BP Reading Systolic Measurement: 124 Diastolic Measurement: 84 Screening for High Blood Pressure: < Pre-Hypertensive BP, F/U Documented > [G8950] Pre-Hypertensive Follow-up Interventions: Referral to alternative/primary care provider.
[2019-03-16 07:41] LABS: INFLUENZA A NEGATIVE (NEGATIVE); INFLUENZA B NEGATIVE (NEGATIVE)
== END 2019-03-16 07:27 | disposition home or self-care (01) ==
LOC: ER 06:38
DX: J20.9 Acute bronchitis, unspecified (principal); F17.210 Nicotine dependence, cigarettes, uncomplicated
CPT/HCPCS: 87400; 99283

== ENCOUNTER 2019-05-14 04:41 | Emergency (ER) | payer MEDICAID ==
[2019-05-14] MEDS ORDERED: PREDNISONE 20 MG TAB PO ONE (05:10)
--- NOTE | 2019-05-14 05:11 | Emergency Department Record ---
History of Present Illness - General Chief complaint: ENT Stated complaint: THROAT HURTS Time Seen by Provider: 05/14/19 05:02 Source: Patient Mode of Arrival: Ambulatory Limitations: No limitations - History of Present Illness Initial comments: The patient is her due to a ST for 3 days with nasal congestion. She denies any fever, chills, cough, or MONSON. 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 MD complaint: Sore throat Onset/Timin -: Days(s) Location: R ear, L ear, Throat Quality: Aching Consistency: Constant Improves with: None Worsens with: Swallowing, Other Associated Symptoms: Sore throat - Related Data Previous Rx's Medication Instructions Recorded Ibuprofen [Motrin 600Mg] 600 mg PO Q6H #20 tablet 06/13/18 Prednisone [Prednisone 20Mg] 40 mg PO DAILY #6 tab 05/14/19 Allergies Allergy/AdvReac Type Severity Reaction Status Date / Time levofloxacin [From Levaquin] Allergy SWELLING Verified 05/14/19 04:50 (GENERAL) Penicillins Allergy ANAPHYLAXIS Verified 05/14/19 04:50 clarithromycin [From Biaxin] AdvReac VOMITING Verified 05/14/19 04:50 Travel Screening - Travel/Exposure Within Last 30 Days Have you traveled within the last 30 days?: No - Travel/Exposure Within Last Year Have you traveled outside the [place] in the last year?: No - Additonal Travel Details Have you been exposed to anyone with a communicable illness?: No - Travel Symptoms Symptom Screening: None Review of Systems Constitutional: Denies: Chills, Fever Eyes: Denies: Eye discharge ENT: Reports: Throat pain. Denies: Congestion Respiratory: Denies: Cough Past Medical History - SOCIAL HISTORY Smoking Status: Current every day smoker Alcohol Use: None Drug Use: None - RESPIRATORY Hx Respiratory Disorders: Yes Hx Asthma: Yes (childhood) - CARDIOVASCULAR Hx Cardio Disorders: Yes Hx Hypertension: Yes - NEURO Hx Neuro Disorders: Yes Hx Seizures: Yes (last one about 5 years ago) - GI Hx GI Disorders: Yes Hx Irritable Bowel: Yes - Hx Genitourinary Disorders: Yes Hx UTI: Yes Comment:: lupus - ENDOCRINE Hx Endocrine Disorders: No - MUSCULOSKELETAL Hx Musculoskeletal Disorders: Yes Comment:: RA, lupus - PSYCH Hx Psych Problems: Yes Hx Anxiety: Yes Hx Depression: Yes - HEMATOLOGY/ONCOLOGY Hx Hematology/Oncology Disorders: Yes Hx Cancer: Yes (cervical) Hx Chemotherapy: Yes (2011) Family Medical History Any Significant Family History?: No Family Hx Comment (NOT TO BE USED IN PLACE OF ITEMS BELOW): denies Physical Exam - General General Appearance: Alert, Oriented x3, Cooperative, No acute distress - Head Head exam: Atraumatic, Normocephalic - Eye Eye exam: Normal appearance, PERRL, EOMI - ENT ENT exam: TM's normal bilaterally. negative: Normal exam Throat exam: Tonsillar erythema. negative: Normal inspection, Tonsillomegaly, Tonsillar exudate, R peritonsillar mass, L peritonsillar mass - Neck Neck exam: Normal inspection, Full ROM. negative: Lymphadenopathy, Tenderness - Respiratory Respiratory exam: Normal lung sounds bilaterally. negative: Respiratory distress - Cardiovascular Cardiovascular Exam: Regular rate, Normal rhythm, Normal heart sounds - GI/Abdominal GI/Abdominal exam: Soft, Normal bowel sounds. negative: Tenderness - Extremities Extremities exam: Normal inspection Course Vital Signs 05/14/19 04:49 Temperature 97.7 F Pulse Rate [ 88 Right] Respiratory 20 Rate Blood Pressure 144/87 [Right Arm] Pulse Ox 95 - Reevaluation(s) Reevaluation #1: I did explain to the patient that the Strep screen is negative and it appears she has a viral URI. We will place her on a short course of Prednisone and will have her use Tylenol or Motrin for pain. 05/14/19 05:09 Disposition Disposition: Discharge Clinical Impression: Pharyngitis Qualifiers: Pharyngitis/tonsillitis etiology: unspecified etiology Qualified Code(s): J02.9 - Acute pharyngitis, unspecified Disposition: Home, Self-Care Condition: (2) Stable Instructions: Pharyngitis (ED) Additional Instructions: Please take Tylenol or Motrin for pain and continue the Prednisone. Please see your family doctor if not better in 3 days and return to the ER for any worsening symptoms. Prescriptions: Prednisone [Prednisone 20Mg] 40 mg PO DAILY #6 tab Forms: Patient Portal Access Time of Disposition: 05:13 Quality - Quality Measures Quality Measures: N/A - Blood Pressure Screening View Details: Yes Does Patient Have Any of the Following: No Blood Pressure Classification: Pre-Hypertensive BP Reading Systolic Measurement: 144 Diastolic Measurement: 87 Screening for High Blood Pressure: < Pre-Hypertensive BP, F/U Documented > [G8950] Pre-Hypertensive Follow-up Interventions: Referral to alternative/primary care provider.
== END 2019-05-14 05:19 | disposition home or self-care (01) ==
LOC: ER 04:41
DX: J02.9 Acute pharyngitis, unspecified (principal)
CPT/HCPCS: 99283 ×2; 87880; J7512

== ENCOUNTER 2019-05-30 06:13 | Emergency (ER) | payer MEDICAID ==
[2019-05-30] MEDS ORDERED: IBUPROFEN 400 MG TABLET PO ONE (06:43)
--- NOTE | 2019-05-30 06:49 | Emergency Department Record ---
History of Present Illness - General Chief Complaint: Ankle/Foot Injury Stated Complaint: LT ANKLE INJURY Time Seen by Provider: 05/30/19 06:43 Source: Patient Mode of Arrival: Ambulatory Limitations: No limitations - History of Present Illness Initial Comments: 39 yo female presents to ED for evaluation of left ankel pain and swelling following injury this morning. Patient reports that she was attempting to walk over an electrical cord stretched across a walkway while carrying laudndy when she tripped and fell resulting in ankle injury. Patient denies other injury on examination other than an abrasion to the left knee, denies injury to the lower legs/knees bilaterally. Patient denies health problems at her baseline. Complaint: Ankle injury Onset/Timin -: Minutes(s) Injury: Ankle: Left Type of Injury: Inversion Place: Home Severity scale (1-10): 9 Improves With: Nothing Worsens With: Weight bearing Context: Fall Associated Symptoms: Able to partially bear weight - Related Data Previous Rx's Medication Instructions Recorded Ibuprofen [Motrin 600Mg] 600 mg PO Q6H #20 tablet 06/13/18 Allergies Allergy/AdvReac Type Severity Reaction Status Date / Time levofloxacin [From Levaquin] Allergy SWELLING Verified 05/14/19 04:50 (GENERAL) Penicillins Allergy ANAPHYLAXIS Verified 05/14/19 04:50 clarithromycin [From Biaxin] AdvReac VOMITING Verified 05/14/19 04:50 Travel Screening - Travel/Exposure Within Last 30 Days Have you traveled within the last 30 days?: No - Travel/Exposure Within Last Year Have you traveled outside the [place] in the last year?: No - Additonal Travel Details Have you been exposed to anyone with a communicable illness?: No - Travel Symptoms Symptom Screening: None Review of Systems Constitutional: Denies: Chills, Fever, Malaise, Night sweats Eyes: Denies: Eye discharge, Eye pain ENT: Denies: Congestion, Ear pain, Epistaxis Respiratory: Denies: Cough, Dyspnea Cardiovascular: Denies: Chest pain, Dyspnea on exertion Endocrine: Denies: Fatigue, Heat or cold intolerance Gastrointestinal: Denies: Abdominal pain, Nausea, Vomiting Genitourinary: Denies: Incontinence, Retention Musculoskeletal: Reports: Arthralgia, Myalgia. Denies: Back pain, Gout Skin: Denies: Bruising, Change in color Neurological: Denies: Confusion, Headache, Seizure Psychiatric: Denies: Anxiety Hematological/Lymphatic: Denies: Anemia, Blood Clots Past Medical History - SOCIAL HISTORY Smoking Status: Current every day smoker Alcohol Use: None Drug Use: None - RESPIRATORY Hx Respiratory Disorders: Yes Hx Asthma: Yes (childhood) - CARDIOVASCULAR Hx Cardio Disorders: Yes Hx Hypertension: Yes - NEURO Hx Neuro Disorders: Yes Hx Seizures: Yes (last one about 5 years ago) - GI Hx GI Disorders: Yes Hx Irritable Bowel: Yes - Hx Genitourinary Disorders: Yes Hx UTI: Yes Comment:: lupus - ENDOCRINE Hx Endocrine Disorders: No - MUSCULOSKELETAL Hx Musculoskeletal Disorders: Yes Comment:: RA, lupus - PSYCH Hx Psych Problems: Yes Hx Anxiety: Yes Hx Depression: Yes - HEMATOLOGY/ONCOLOGY Hx Hematology/Oncology Disorders: Yes Hx Cancer: Yes (cervical) Hx Chemotherapy: Yes (2011) Family Medical History Any Significant Family History?: No Family Hx Comment (NOT TO BE USED IN PLACE OF ITEMS BELOW): denies Physical Exam - General General Appearance: Alert, Oriented x3, Cooperative, Mild distress Limitations: No limitations - Head Head exam: Atraumatic, Normocephalic, Normal inspection Head exam detail: negative: Abrasion, Contusion, Alcocer's sign, General tenderness, Hematoma, Laceration - Eye Eye exam: Normal appearance. negative: Conjunctival injection, Periorbital swelling, Periorbital tenderness, Scleral icterus - ENT Ear exam: negative: Auricular hematoma, Auricular trauma Nasal Exam: negative: Active bleeding, Discharge, Dried blood, Foreign body Mouth exam: negative: Drooling, Laceration, Muffled voice, Tongue elevation - Neck Neck exam: Normal inspection. negative: Meningismus, Tenderness - Respiratory Respiratory exam: Normal lung sounds bilaterally. negative: Rales, Respiratory distress, Rhonchi, Stridor - Cardiovascular Cardiovascular Exam: Regular rate, Normal rhythm, Normal heart sounds Peripheral Pulses: 3+: Dorsalis Pedis (L) - GI/Abdominal GI/Abdominal exam: Soft. negative: Rebound, Rigid, Tenderness - Rectal Rectal exam: Deferred - exam: Deferred - Extremities Extremities exam: Tenderness, Other (Mild STS to the left lateral ankle, no pain to the medial ankle, achilles intact, no pain to the lower leg on examination, compartments are soft on examination.). negative: Calf tenderness, Pedal edema - Back Back exam: Denies: CVA tenderness (R), CVA tenderness (L) - Neurological Neurological exam: Alert, Normal gait, Oriented X3 - Psychiatric Psychiatric exam: Normal affect, Normal mood - Skin Skin exam: Normal color. negative: Abrasion Type of lesion: negative: abrasion Course Vital Signs 05/30/19 06:20 Temperature 98.6 F Pulse Rate [ 110 H Pulse Ox Probe] Respiratory 24 Rate Blood Pressure 121/94 [Left Arm] Pulse Ox 96 - Reevaluation(s) Reevaluation #1: 05/30/19 07:39 Left ankle: Small avulsion fracture from the lateral malleolus Likely chronic avulsion fracture medial malleolus Patient was updated on her radiograph results, will place in fracture boot with crutches for support. Patient was counseled re: Ibuprofen, ice, and elevation. Patient appears stable for discharge at this time. Disposition Disposition: Discharge Clinical Impression: Closed avulsion fracture of left ankle Qualifiers: Encounter type: initial encounter Qualified Code(s): S82.892A - Other fracture of left lower leg, initial encounter for closed fracture Disposition: Home, Self-Care Condition: (2) Stable Instructions: Ankle Sprain (ED) Additional Instructions: Return to ED if your symptoms worsen or if you have any concerns. Ice, Ibuprofen as directed. Fracture boot/crutches as directed. Follow-up with your family doctor in 3-5 days as directed. Forms: Patient Portal Access Time of Disposition: 07:39 Quality - Quality Measures Quality Measures: N/A - Blood Pressure Screening Does Patient Have Any of the Following: No Blood Pressure Classification: Hypertensive Reading Systolic Measurement: 121 Diastolic Measurement: 94 Screening for High Blood Pressure: < First Hypertensive BP, F/U Documented > [G8950] First Hypertensive Follow-up Interventions: Referral to alternative/primary care provider.
--- NOTE | 2019-05-30 07:33 | RADIOLOGY REPORT ---
EXAMINATION: Left Ankle, Complete Minimum Three Views EXAM DATE: 05/30/2019 6:44 AM TECHNIQUE: AP, lateral, and oblique INDICATION: ANKLE INJURY COMPARISON: None ENCOUNTER: Initial FINDINGS: There is a fracture of the tip of the lateral malleolus with associated soft tissue swelling. There i s also a well-corticated fragment at the tip of the medial malleolus which more likely represents an old fracture. Correlate with point tenderness. Plantar calcaneal spurring is seen. IMPRESSION: Fracture of the tip of the lateral malleolus. Fracture of the tip of the medial malleolus which may be chronic. Correlate clinically. Dictated by: Venessa Nevarez MD on 05/30/2019 7:30 AM. .
== END 2019-05-30 07:48 | disposition home or self-care (01) ==
LOC: ER 06:13
DX: S80.212A Abrasion, left knee, initial encounter (principal); S82.62XA Displaced fracture of lateral malleolus of left fibula, initial encounter for closed fracture; M25.572 Pain in left ankle and joints of left foot; F17.210 Nicotine dependence, cigarettes, uncomplicated; W18.09XA Striking against other object with subsequent fall, initial encounter; Y92.009 Unspecified place in unspecified non-institutional (private) residence as the place of occurrence of the external cause
CPT/HCPCS: 99283

== ENCOUNTER 2019-06-11 16:28 | Emergency (ER) | payer MEDICAID ==
--- NOTE | 2019-06-11 16:46 | Emergency Department Record ---
History of Present Illness - General Chief Complaint: Ankle/Foot Injury Stated Complaint: ANKLE SWELLING AND PAIN Time Seen by Provider: 06/11/19 16:36 Source: Patient Mode of Arrival: Ambulatory Limitations: No limitations - History of Present Illness Initial Comments: The patient is here due to persistent L ankle pain and swelling. She suffered a lateral malleolus avulsion fracture 12 days ago and was seen here and placed in a walking boot. Since she has been walking on it a lot and it is still painful and mildly swollen. 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 Complaint: Ankle injury Onset/Timin -: Days(s) Type of Injury: Other Severity scale (1-10): 8 Improves With: Nothing Worsens With: Weight bearing Associated Symptoms: Ambulatory - Related Data Previous Rx's Medication Instructions Recorded Ibuprofen [Motrin 600Mg] 600 mg PO Q6H #20 tablet 06/13/18 Allergies Allergy/AdvReac Type Severity Reaction Status Date / Time levofloxacin [From Levaquin] Allergy SWELLING Verified 05/14/19 04:50 (GENERAL) Penicillins Allergy ANAPHYLAXIS Verified 05/14/19 04:50 clarithromycin [From Biaxin] AdvReac VOMITING Verified 05/14/19 04:50 Travel Screening - Travel/Exposure Within Last 30 Days Have you traveled within the last 30 days?: No Review of Systems Constitutional: Denies: Chills, Fever Past Medical History - SOCIAL HISTORY Smoking Status: Current every day smoker - RESPIRATORY Hx Respiratory Disorders: Yes Hx Asthma: Yes (childhood) - CARDIOVASCULAR Hx Cardio Disorders: Yes Hx Hypertension: Yes - NEURO Hx Neuro Disorders: Yes Hx Seizures: Yes (last one about 5 years ago) - GI Hx GI Disorders: Yes Hx Irritable Bowel: Yes - Hx Genitourinary Disorders: Yes Hx UTI: Yes Comment:: lupus - ENDOCRINE Hx Endocrine Disorders: No - MUSCULOSKELETAL Hx Musculoskeletal Disorders: Yes Comment:: RA, lupus - PSYCH Hx Psych Problems: Yes Hx Anxiety: Yes Hx Depression: Yes - HEMATOLOGY/ONCOLOGY Hx Hematology/Oncology Disorders: Yes Hx Cancer: Yes (cervical) Hx Chemotherapy: Yes (2011) Family Medical History Any Significant Family History?: No Family Hx Comment (NOT TO BE USED IN PLACE OF ITEMS BELOW): denies Physical Exam - General General Appearance: Alert, Oriented x3, Cooperative, No acute distress - Head Head exam: Atraumatic, Normocephalic - Extremities Extremities exam: Full ROM, Normal capillary refill, Tenderness. negative: Normal inspection (There is mild swelling over the L lateral Malleolus with no medial or achilles tenderness. The L foot is NVI with normal pulses and is stable on stressing of the joint.), Calf tenderness, Pedal edema - Neurological Neurological exam: Alert. negative: Motor sensory deficit Course Vital Signs 06/11/19 16:32 Temperature 97.9 F Pulse Rate 86 Respiratory 20 Rate Blood Pressure 146/100 Pulse Ox 99 - Reevaluation(s) Reevaluation #1: I did discuss with the patient that a bad sprain can take weeks to heal and the real issues are that she is on her feet so long each day. She is to continue to wear the boot and see her PCP for recheck and for an ankle MRI since this is not a new issue. 06/11/19 17:39 Medical Decision Making - Data Complexity MDM Data: X-Ray Ordered and/or Reviewed - Radiology Data Radiology results: Report reviewed (L ankle: avulsion fx distal lateral malleolus. possible loose body anterior to tibial-talar joint. Rec; MRI.) Disposition Disposition: Discharge Clinical Impression: Closed avulsion fracture of left ankle Qualifiers: Encounter type: sequela Qualified Code(s): S82.892S - Other fracture of left lower leg, sequela Disposition: Home, Self-Care Condition: (2) Stable Instructions: Ankle Sprain (ED) Additional Instructions: Please continue your home pain medicines and wear the walking boot for another 2 weeks. Please ice and elevate the ankle when possible and please see your family doctor for recheck and to order an MRI of the L ankle. Forms: Patient Portal Access Time of Disposition: 17:38 Quality - Quality Measures Quality Measures: N/A - Blood Pressure Screening View Details: Yes Does Patient Have Any of the Following: Active Dx of HTN Blood Pressure Classification: Hypertensive Reading Systolic Measurement: 146 Diastolic Measurement: 100 Screening for High Blood Pressure: Patient Exclusion, Hx of HTN [G9744]
--- NOTE | 2019-06-11 17:32 | RADIOLOGY REPORT ---
EXAMINATION: Left Ankle, Complete Minimum Three Views EXAM DATE: 06/11/2019 4:57 PM TECHNIQUE: AP, lateral, and oblique INDICATION: ankle fracture 2 weeks ago COMPARISON: 05/30/2019 ENCOUNTER: Initial FINDINGS: Normal bony architecture. Lateral soft tissue swelling. Avulsion fracture tip of the lateral malleolu s. Previously described bone fragment adjacent to the medial malleolus now projects anterior to the t ibiotalar joint may represent intra-articular loose body. Ankle mortise intact. Plantar calcaneal spu rring. IMPRESSION: 1. Avulsion fracture lateral malleolus with soft tissue swelling 2. Probable intra-articular loose body projecting anterior to the tibiotalar joint follow-up MRI as c linically directed Dictated by: Gene Briceño MD on 06/11/2019 5:28 PM. .
== END 2019-06-11 17:47 | disposition home or self-care (01) ==
LOC: ER 16:28
DX: S82.62XD Displaced fracture of lateral malleolus of left fibula, subsequent encounter for closed fracture with routine healing (principal)
CPT/HCPCS: 99283

== ENCOUNTER 2019-08-12 14:55 | Emergency (ER) | payer MEDICAID ==
--- NOTE | 2019-08-12 15:07 | Emergency Department Record ---
History of Present Illness - General Chief Complaint: Chest Pain Stated Complaint: CHEST PAIN Time Seen by Provider: 08/12/19 14:58 Source: Patient Mode of Arrival: Ambulatory Limitations: No limitations - Related Data Previous Rx's Medication Instructions Recorded Ibuprofen [Motrin 600Mg] 600 mg PO Q6H #20 tablet 06/13/18 Allergies Allergy/AdvReac Type Severity Reaction Status Date / Time levofloxacin [From Levaquin] Allergy SWELLING Verified 05/14/19 04:50 (GENERAL) Penicillins Allergy ANAPHYLAXIS Verified 05/14/19 04:50 clarithromycin [From Biaxin] AdvReac VOMITING Verified 05/14/19 04:50 Past Medical History - SOCIAL HISTORY Smoking Status: Current every day smoker - RESPIRATORY Hx Respiratory Disorders: Yes Hx Asthma: Yes (childhood) - CARDIOVASCULAR Hx Cardio Disorders: Yes Hx Hypertension: Yes - NEURO Hx Neuro Disorders: Yes Hx Seizures: Yes (last one about 5 years ago) - GI Hx GI Disorders: Yes Hx Irritable Bowel: Yes - Hx Genitourinary Disorders: Yes Hx UTI: Yes Comment:: lupus - ENDOCRINE Hx Endocrine Disorders: No - MUSCULOSKELETAL Hx Musculoskeletal Disorders: Yes Comment:: RA, lupus - PSYCH Hx Psych Problems: Yes Hx Anxiety: Yes Hx Depression: Yes - HEMATOLOGY/ONCOLOGY Hx Hematology/Oncology Disorders: Yes Hx Cancer: Yes (cervical) Hx Chemotherapy: Yes (2011) Family Medical History Family Hx Comment (NOT TO BE USED IN PLACE OF ITEMS BELOW): denies Course - Reevaluation(s) Reevaluation #1: 08/12/19 15:04 EKG #1: 14:53 Rate: 115 Rhythm: sinus tachycardia [place]: normal Intervals: normal ST segments: NS rsr', no acute ST changes. Prior: No changes from 01/01/19 Disposition Quality - Blood Pressure Screening Does Patient Have Any of the Following: No Systolic Measurement: ~
[2019-08-12] MEDS ORDERED: ACETAMINOPHEN 1,000 MG/100 ML BTL IVPB ONE (15:14)
[2019-08-12] MEDS ORDERED: ONDANSETRON HCL IV 4 MG/2 ML VIAL IVP ONE ×2 (15:14→17:18)
[2019-08-12] MEDS ORDERED: 0.9 % SODIUM CHLORIDE 1,000 ML BAG IV ONE (15:14)
--- NOTE | 2019-08-12 15:20 | Emergency Department Record ---
History of Present Illness - General Chief Complaint: Chest Pain Stated Complaint: CHEST PAIN Time Seen by Provider: 08/12/19 14:58 Source: Patient Mode of Arrival: Ambulatory Limitations: No limitations - History of Present Illness Initial Comments: 39 yo female presents not feeling well since Friday. She states on Friday she developed nausea and vomiting without diarrhea. She did develop a fever with a Tmax of 102 over the weekend but non sense. She states since the onset she has had nausea and vomiting every time she tries to eat. She has had some pain in the right upper abdomen at well. The last day or two she has had pain in the epigastic area with some radiation to the chest. She states she has no appetite with return of the symptoms freqyently when she eats. She has had a hysterectomy. She has Lupus as well. Her PCP is Dr Ellington. No dysuria, rash, bloody stool, blood in the vomit. She additionally states she has felt a t ingling feeling that coves the entire left side of her body. She states this has been present since 10pm. No weakness. No coordination changes MD Complaint: Abdominal pain Onset/Timin -: Days(s) Location: RUQ Radiation: RUQ Migration to: RUQ Severity: Moderate Quality: Aching, Cramping Consistency: Getting worse Improves With: Nothing Worsens With: Eating Context: Sick contacts (school children) Associated Symptoms: Anorexia, Chills, Fever, Nausea, Vomiting - Related Data Patient : No Home Medications Medication Instructions Recorded Confirmed Last Taken Belimumab [Benlysta] 1 cartridge IJ MONTHLY 08/12/19 08/12/19 Unknown Furosemide [Lasix] 10 mg PO DAILY 08/12/19 08/12/19 Unknown Previous Rx's Medication Instructions Recorded Ibuprofen [Motrin 600Mg] 600 mg PO Q6H #20 tablet 06/13/18 Azithromycin [Zithromax] 250 mg PO DAILY #6 tablet 08/12/19 Ondansetron [Zofran Odt] 4 mg PO Q8H #15 tab.rapdis 08/12/19 Allergies Allergy/AdvReac Type Severity Reaction Status Date / Time levofloxacin [From Levaquin] Allergy SWELLING Verified 05/14/19 04:50 (GENERAL) Penicillins Allergy ANAPHYLAXIS Verified 05/14/19 04:50 clarithromycin [From Biaxin] AdvReac VOMITING Verified 05/14/19 04:50 Travel/Exposure Screening - Travel/Exposure Within Last 30 Days Have you traveled within the last 30 days?: No - Travel/Exposure Within Last Year Have you traveled outside the [place] in the last year?: No - Additonal Travel/Exposure Details Have you been exposed to anyone with a communicable illness?: No - Travel Symptoms Symptom Screening: None Review of Systems Constitutional: Reports: Chills, Fever, Malaise, Weakness Eyes: Denies: Eye discharge ENT: Denies: Congestion, Throat pain Respiratory: Denies: Cough, Dyspnea, Hemoptysis, Stridor, Wheezes Cardiovascular: Reports: As per HPI, Chest pain Endocrine: Denies: Fatigue, Polydipsia, Polyuria Gastrointestinal: Reports: Abdominal pain, Nausea, Vomiting. Denies: Consti pation, Diarrhea, Hematemesis, Hematochezia, Melena Genitourinary: Denies: Dysuria, Urgency Musculoskeletal: Denies: Arthralgia, Back pain, Myalgia, Neck pain Skin: Denies: Bruising, Change in color, Rash Neurological: Reports: Tingling, Weakness. Denies: Headache Psychiatric: Denies: Anxiety Hematological/Lymphatic: Denies: Easy bleeding, Easy bruising Past Medical History - SOCIAL HISTORY Smoking Status: Current every day smoker - RESPIRATORY Hx Respiratory Disorders: Yes Hx Asthma: Yes (childhood) - CARDIOVASCULAR Hx Cardio Disorders: Yes Hx Hypertension: Yes - NEURO Hx Neuro Disorders: Yes Hx Seizures: Yes (last one about 5 years ago) - GI Hx GI Disorders: Yes Hx Irritable Bowel: Yes - Hx Genitourinary Disorders: Yes Hx UTI: Yes Comment:: lupus - ENDOCRINE Hx Endocrine Disorders: No - MUSCULOSKELETAL Hx Musculoskeletal Disorders: Yes Comment:: RA, lupus - PSYCH Hx Psych Problems: Yes Hx Anxiety: Yes Hx Depression: Yes - HEMATOLOGY/ONCOLOGY Hx Hematology/Oncology Disorders: Yes Hx Cancer: Yes (cervical) Hx Chemotherapy: Yes (2011) Family Medical History Family Hx Comment (NOT TO BE USED IN PLACE OF ITEMS BELOW): denies Physical Exam - General General Appearance: Alert, Oriented x3, Cooperative, No acute distress Limitations: No limitations - Head Head exam: Atraumatic, Normal inspection - Eye Eye exam: Normal appearance, PERRL. negative: Conjunctival injection, Scleral icterus - ENT ENT exam: Normal exam, Mucous membranes moist Ear exam: Normal external inspection Nasal Exam: Normal inspection Mouth exam: Normal external inspection - Neck Neck exam: Normal inspection. negative: Tenderness - Respiratory Respiratory exam: Normal lung sounds bilaterally. negative: Accessory muscle use, Chest wall tenderness, Decreased breath sounds, Prolonged expiratory, Respiratory distress, Rhonchi, Stridor, Wheezes - Cardiovascular Cardiovascular Exam: Normal rhythm, Normal heart sounds, Tachycardia Peripheral Pulses: 2+: Radial (R), Radial (L) - GI/Abdominal GI/Abdominal exam: Soft, Tenderness (Soft abdomen, mild tenderness in the RUQ otherwise, non tender). negative: Distended, Guarding, Rebound, Rigid - Rectal Rectal exam: Deferred - exam: Deferred - Extremities Extremities exam: Normal inspection. negative: Calf tenderness, Pedal edema, Tenderness - Back Back exam: Denies: CVA tenderness (R), CVA tenderness (L), Muscle spasm, Tenderness - Neurological Neurological exam: Alert, Oriented X3 - Psychiatric Psychiatric exam: Normal affect, Normal mood. negative: Agitated, Anxious - Skin Skin exam: Dry, Intact, Normal color, Warm Course Vital Signs 08/12/19 14:57 Temperature 98.4 F Pulse Rate 123 H Respiratory 18 Rate Blood Pressure 134/97 Pulse Ox 97 - Reevaluation(s) Reevaluation #1: 08/12/19 16:01 The CBC was reviewed No acute abnormality 08/12/19 16:07 The CR is 1.2. The patient is receiving IVF The Glucose is 167 08/12/19 16:23 The LFTs are normal The Lipase is normal The troponin is normal 08/12/19 16:53 HCT is negative for acute process of the brain, Paranasal sinus inflammatory changes in the R maxillary with sinus AFL. Correlate with acute sinusitis. 08/12/19 16:56 The patient is doing much better Her HR is 88. Nausea and pain are controlled at this time. 08/12/19 17:01 The US was reviewed. Positive Love's sign. Contracted gall bladder limits evaluation but no stones or pericholecystic fluid. Non dilated biliary duct, 6mm. 08/12/19 17:03 08/12/19 17:08 The US results were reviewed with the patient. She is feeling better and would like a PO trial. 08/12/19 17:18 I discussed the options at this point in time. I offered OBV vs transfer for the nausea and RUQ pain. She states she is feeling better, she has a 13 yo daughter, no other close family and wishes to go home and follow up as an outpatient. She will be referred to the specialty clinic for general surgery for outpatient follow up for her pain after eating recently. She does not have a fever, her examination is very mild, no abnormal labs of signficance. We discussed returning or going to [facility] if the nausea and pain return. 08/12/19 17:30 08/12/19 18:38 The repeat troponin is negative. We again reviewed that the labs are negative. I have referred her to general surgery for her RUQ. She is doing well and still wishes to go home. I discussed at length reasons for immediate return if pain, vomiting or fever. She will be treated for her acute sinusitis on the CT scan as she states she has had pressure in that area and drainage. Medical Decision Making - Lab Data Result diagrams: 08/12/19 15:00 08/12/19 15:00 Disposition Disposition: Discharge Clinical Impression: Nausea and vomiting Qualifiers: Vomiting type: unspecified Vomiting Intractability: non-intractable Qualified Code(s): R11.2 - Nausea with vomiting, unspecified Abdominal pain Qualifiers: Abdominal location: unspecified location Qualified Code(s): R10.9 - Unspecified abdominal pain Sinusitis Qualifiers: Recurrence: not specified as recurrent Disposition: Home, Self-Care Condition: (2) Stable Instructions: Biliary Colic (ED), Abdominal Pain (ED) Additional Instructions: Review this ER visit and the tests performed with your family doctor Call your doctor for the next available follow up appointment Return to the ER for a recheck immediately if worse, any new concerns or questions Take the prescriptions provided as directed Prescriptions: Azithromycin [Zithromax] 250 mg PO DAILY #6 tablet Ondansetron [Zofran Odt] 4 mg PO Q8H #15 tab.rapdis Referrals: Tree Gaspar [DOCTOR OF OSTEOPATH] - [facility] Specialty Clinics [Provider Group] Forms: Patient Portal Access Time of Disposition: 18:42 Quality - Quality Measures Quality Measures: N/A - Blood Pressure Screening Does Patient Have Any of the Following: Active Dx of HTN Blood Pressure Classification: Hypertensive Reading Systolic Measurement: 134 Diastolic Measurement: 97 Screening for High Blood Pressure: Patient Exclusion, Hx of HTN [Z5762]
[2019-08-12 15:50] LABS: ABSOLUTE NEUTROPHIL COUNT 6.78; HEMATOCRIT 45.7 % (35.0-47.0); HEMOGLOBIN 13.9 gm/dl (11.6-16.0); MEAN CELL VOLUME 86.4 fl (81-97); MEAN CORPUSCULAR HEMOGLOBIN 26.3 pg (27-33); MEAN CORPUSCULAR HGB CONC 30.4 g/dl (32-36); MEAN PLATELET VOLUME 10.3 fl (7.4-10.4); PLATELET COUNT 306 K/uL (130-400); RED BLOOD COUNT 5.29 M/uL (3.80-5.40); RED CELL DISTRIBUTION WIDTH 14.6 % (11.5-14.5); WHITE BLOOD COUNT W/O DIFF 8.3 K/uL (4.2-12.2)
[2019-08-12 15:59] LABS: PLATELET ESTIMATE NORMAL (NORMAL)
[2019-08-12 16:01] LABS: BILIRUBIN,TOTAL < 0.20 mg/dL (0.2-1.0); BLOOD UREA NITROGEN 17 mg/dL (6-20); CREATININE 1.2 mg/dL (0.5-0.9); EST GLOMERULAR FILTRATION RATE 53 mL/min
[2019-08-12 16:02] LABS: LIPASE 33 U/L (13-60); TOTAL PROTEIN 7.4 g/dL (6.6-8.7)
[2019-08-12 16:03] LABS: GLUCOSE,RANDOM 167 mg/dL (74-109)
[2019-08-12 16:06] LABS: ALB/GLOB RATIO 1.3 (1.1-1.8); ALBUMIN 4.2 g/dL (4.0-5.0); ALKALINE PHOSPHATASE 73 U/L (35-104); ALT/SGPT 16 U/L (<33); AST/SGOT 18 U/L (10.0-35.0)
--- NOTE | 2019-08-12 16:41 | CT SCAN REPORT ---
EXAMINATION: HEAD WO CONTRAST EXAM DATE: 08/12/2019 4:14 PM TECHNIQUE: Noncontrast axial images were obtained to the brain. INDICATION: left side numbness arms and legs. Paresthesias. COMPARISON: CT 08/08/2018. ENCOUNTER: Not applicable HAND DOMINANCE: Unknown FINDINGS: The brain parenchyma is unremarkable for age. No loss of roldan-white matter differentiation or sulcal effacement to indicate acute infarction. No evidence of intracranial mass. The ventricles, sulci, and subarachnoid spaces are unremarkable for age. The basal cisterns are paten t and there is no midline shift or herniation. No intra-axial or extra-axial fluid collection. No evidence of intracranial hemorrhage. Near-complete opacification the right maxillary sinus with an air-fluid level noted. Left maxillary s inus and left sphenoid sinus mucous retention cysts. The paranasal sinuses, mastoid air cells, and o rbits are otherwise unremarkable. The calvarium is intact. IMPRESSION: 1. No CT evidence of intracranial hemorrhage or acute intracranial abnormality. 2. Paranasal sinus inflammatory changes with a right maxillary sinus air-fluid level. Correlate for acute sinusitis Dictated by: GRANT BORJAS MD on 08/12/2019 4:37 PM. .
--- NOTE | 2019-08-12 16:59 | ULTRASOUND REPORT ---
EXAMINATION: ABDOMEN, COMPLETE EXAM DATE: 08/12/2019 4:07 PM TECHNIQUE: Complete ultrasound of the abdomen was performed. INDICATION: RUQ pain with eating. COMPARISON: None FINDINGS: Pancreas: Unremarkable as visualized.. Liver: normal echogenicity and no focal lesion. Intrahepatic ducts: nondilated Extrahepatic duct: nondilated, 6.0 mm Gallbladder: Contracted. No stones or pericholecystic fluid.. There is a positive sonographic Love' s sign. Right kidney: 11.6 x 3.9 x 4.8 cm, appears unremarkable. Left kidney: 10.6 x 4.7 x 4.7 cm, appears unremarkable. IVC: unremarkable Abdominal aorta: not enlarged Spleen: Not enlarged, measuring up to 11.8 cm, no focal lesion Free fluid: None Other findings: None IMPRESSION: Positive sonographic Love's sign. Otherwise negative. The gallbladder is partly contracted which limits its evaluation. Dictated by: Rik Mercado MD on 08/12/2019 4:50 PM. .
== END 2019-08-12 19:03 | disposition home or self-care (01) ==
LOC: ER 14:55
DX: R10.11 Right upper quadrant pain (principal); R07.9 Chest pain, unspecified; R20.0 Anesthesia of skin; R11.2 Nausea with vomiting, unspecified; M54.2 Cervicalgia; R51 Headache; J32.9 Chronic sinusitis, unspecified; I10 Essential (primary) hypertension; F17.210 Nicotine dependence, cigarettes, uncomplicated; M06.9 Rheumatoid arthritis, unspecified
CPT/HCPCS: 70450; 76700; 80053; 83690; 84484; 85027; 93005; 93010; 96365; 96375; 96376; 99284; J2405; J7030

== ENCOUNTER 2019-08-13 20:07 | Emergency (ER) | payer MEDICAID ==
[2019-08-13] MEDS ORDERED: 0.9 % SODIUM CHLORIDE 1,000 ML BAG IV ONE ×2 (20:43→21:44)
[2019-08-13] MEDS ORDERED: ONDANSETRON HCL IV 4 MG/2 ML VIAL IV ONE (20:43)
[2019-08-13] MEDS ORDERED: ACETAMINOPHEN 1,000 MG/100 ML BTL IVPB ONE (20:43)
--- NOTE | 2019-08-13 20:48 | Emergency Department Record ---
History of Present Illness - General Chief Complaint: Abdominal Pain Stated Complaint: ABD PAIN Time Seen by Provider: 08/13/19 20:24 Source: Patient Mode of Arrival: Ambulatory Limitations: No limitations - History of Present Illness Initial Comments: The patient is here due to a 4 hour hx of RUQ AP. The pain is sharp and stabbing and nonradiating. The patient also has had some nausea and vomiting with the pain. She was here in the ER yesterday and had similar pain and was diagnosed with a possible Gallbladder issue and was set up with an appointment with Dr. Gaspar for Friday. Tonight prior to the onset of the pain she did eat pizza. Complaint: Abdominal pain Onset/Timin -: Hour(s) Location: RUQ Radiation: Back Severity scale (1-10): 9 Quality: Fullness, Stabbing Consistency: Constant Improves With: Movement Worsens With: Nothing Associated Symptoms: Denies other symptoms - Related Data Patient : No Previous Rx's Medication Instructions Recorded Ibuprofen [Motrin 600Mg] 600 mg PO Q6H #20 tablet 06/13/18 Azithromycin [Zithromax] 250 mg PO DAILY #6 tablet 08/12/19 Ondansetron [Zofran Odt] 4 mg PO Q8H #15 tab.rapdis 08/12/19 Hydrocodone/Acetaminophen [[place] 1 - 2 each PO QID #12 tablet 08/13/19 5-325 Tablet] Allergies Allergy/AdvReac Type Severity Reaction Status Date / Time levofloxacin [From Levaquin] Allergy SWELLING Verified 05/14/19 04:50 (GENERAL) Penicillins Allergy ANAPHYLAXIS Verified 05/14/19 04:50 clarithromycin [From Biaxin] AdvReac VOMITING Verified 05/14/19 04:50 Travel/Exposure Screening - Travel/Exposure Within Last 30 Days Have you traveled within the last 30 days?: No - Travel/Exposure Within Last Year Have you traveled outside the [place] in the last year?: No - Additonal Travel/Exposure Details Have you been exposed to anyone with a communicable illness?: No - Travel Symptoms Symptom Screening: None Review of Systems Constitutional: Denies: Chills, Fever Eyes: Denies: Eye discharge ENT: Denies: Congestion Respiratory: Denies: Cough, Dyspnea Past Medical History - SOCIAL HISTORY Smoking Status: Current every day smoker Alcohol Use: None Drug Use: None - RESPIRATORY Hx Respiratory Disorders: Yes Hx Asthma: Yes (childhood) - CARDIOVASCULAR Hx Cardio Disorders: Yes Hx Hypertension: Yes - NEURO Hx Neuro Disorders: Yes Hx Seizures: Yes (last one about 5 years ago) - GI Hx GI Disorders: Yes Hx Irritable Bowel: Yes - Hx Genitourinary Disorders: Yes Hx UTI: Yes Comment:: lupus - ENDOCRINE Hx Endocrine Disorders: No - MUSCULOSKELETAL Hx Musculoskeletal Disorders: Yes Comment:: RA, lupus - PSYCH Hx Psych Problems: Yes Hx Anxiety: Yes Hx Depression: Yes - HEMATOLOGY/ONCOLOGY Hx Hematology/Oncology Disorders: Yes Hx Cancer: Yes (cervical) Hx Chemotherapy: Yes (2010) Family Medical History Any Significant Family History?: No Family Hx Comment (NOT TO BE USED IN PLACE OF ITEMS BELOW): denies Physical Exam - General General Appearance: Alert, Oriented x3, Cooperative, No acute distress - Head Head exam: Atraumatic, Normocephalic - Eye Eye exam: Normal appearance, PERRL - ENT Throat exam: Normal inspection. negative: Tonsillar erythema, Tonsillar exudate - Neck Neck exam: Normal inspection, Full ROM. negative: Tenderness - Respiratory Respiratory exam: Normal lung sounds bilaterally. negative: Respiratory distress - Cardiovascular Cardiovascular Exam: Regular rate, Normal rhythm, Normal heart sounds - GI/Abdominal GI/Abdominal exam: Soft, Tenderness (There is mild to moderate RUQ tenderness but the abdomen is very soft.). negative: Distended, Guarding, Rebound, Rigid - Extremities Extremities exam: Normal inspection, Full ROM, Normal capillary refill. negative: Tenderness - Neurological Neurological exam: Alert. negative: Motor sensory deficit Course Vital Signs 08/13/19 20:20 Temperature 98.1 F Pulse Rate [ 108 H Pulse Ox Probe] Respiratory 20 Rate Blood Pressure 130/85 [Left Arm] Pulse Ox 98 - Reevaluation(s) Reevaluation #1: The patient is doing much better at this time. She states the pain and discomfort are much improved. On exam her abdomen is very mildly tender in the RUQ. I did discuss the fact that I do believe the pain is due to her gallbladder and it will need to come out soon. I also did discuss the case with Dr. Gaspar and he agrees with the plan for discharge and would like the patient to be NPO past [facility] for surgery Friday. The patient is to eat no fried or fatty foods and she is to take [place] for pain. She is to return to the ER for any worsening symptoms. 08/13/19 22:18 Medical Decision Making - Data Complexity MDM Data: Labs Ordered and/or Reviewed, X-Ray Ordered and/or Reviewed - Lab Data Result diagrams: 08/13/19 21:03 08/13/19 21:03 - Radiology Data Radiology results: Report reviewed (CT: Neg for any acute changes.) Disposition Disposition: Discharge Clinical Impression: Abdominal pain Qualifiers: Abdominal location: right upper quadrant Qualified Code(s): R10.11 - Right upper quadrant pain Disposition: Home, Self-Care Condition: (2) Stable Instructions: Abdominal Pain (ED) Additional Instructions: Please DO NOT eat any fatty or fried foods and stop your Motrin and Advil for pain. Please take Tylenol or [place] for pain. Please do not eat or drink after midnight Friday night due to probably having surgery Friday with Dr. Gaspar. Return to the ER for any worsening pain, fever or vomiting. Prescriptions: Hydrocodone/Acetaminophen [[place] 5-325 Tablet] 1 - 2 each PO QID #12 tablet Forms: Patient Portal Access Time of Disposition: 22:25 Quality - Quality Measures Quality Measures: N/A - Blood Pressure Screening View Details: Yes Does Patient Have Any of the Following: No Blood Pressure Classification: Normal BP Reading Systolic Measurement: 101 Diastolic Measurement: 69 Screening for High Blood Pressure: < Normal BP, F/U Not Required > [G8783]
[2019-08-13 21:13] LABS: HEMATOCRIT 41.4 % (35.0-47.0); HEMOGLOBIN 12.7 gm/dl (11.6-16.0); MEAN CELL VOLUME 87.9 fl (81-97); MEAN CORPUSCULAR HGB CONC 30.7 g/dl (32-36); MEAN PLATELET VOLUME 10.1 fl (7.4-10.4); PLATELET COUNT 257 K/uL (130-400); RED BLOOD COUNT 4.71 M/uL (3.80-5.40); RED CELL DISTRIBUTION WIDTH 14.6 % (11.5-14.5); WHITE BLOOD COUNT W/O DIFF 7.7 K/uL (4.2-12.2)
[2019-08-13 21:31] LABS: BILIRUBIN,TOTAL < 0.20 mg/dL (0.2-1.0); BLOOD UREA NITROGEN 15 mg/dL (6-20); CREATININE 1.1 mg/dL (0.5-0.9); EST GLOMERULAR FILTRATION RATE 59 mL/min; TOTAL PROTEIN 6.1 g/dL (6.6-8.7)
[2019-08-13 21:32] LABS: LIPASE 47 U/L (13-60)
[2019-08-13 21:33] LABS: GLUCOSE,RANDOM 106 mg/dL (74-109)
[2019-08-13 21:36] LABS: ALBUMIN 3.5 g/dL (4.0-5.0); ALKALINE PHOSPHATASE 57 U/L (35-104); ALT/SGPT 18 U/L (<33); AST/SGOT 23 U/L (10.0-35.0)
[2019-08-13 21:40] LABS: BILIRUBIN,DIRECT < 0.2 mg/dL (0-0.3)
[2019-08-13 21:49] LABS: PLATELET ESTIMATE NORMAL (NORMAL)
[2019-08-13] MEDS ORDERED: KETOROLAC 30 MG/ML VIAL IVP ONE (21:49)
--- NOTE | 2019-08-13 22:01 | CT SCAN REPORT ---
EXAMINATION: CT Abdomen and Pelvis without Contrast EXAM DATE: 08/13/2019 9:34 PM TECHNIQUE: Spiral CT images were obtained from the lung bases to the ischial tuberosities without int ravenous contrast. Coronal and sagittal 2-D reconstructions were made from source images. INDICATION: RUQ pain COMPARISON: None. FINDINGS: Evaluation of solid organs is degraded due to lack of intravenous contrast. Abdomen: The liver, spleen, pancreas, adrenals, and kidneys are normal. No free fluid or free air. Suboptimal evaluation of bowel due to nondistention and lack of oral contrast. No bowel dilation. Pelvis: Previous hysterectomy. No free fluid or free air. No inflammatory change. The appendix is normal. IMPRESSION: 1. Negative. Dictated by: Antolin Ernst MD on 08/13/2019 9:52 PM. .
[2019-08-13] MEDS ORDERED: HYDROCODONE/APAP 5/325MG TABLET PO ONE (22:21)
== END 2019-08-13 22:38 | disposition home or self-care (01) ==
LOC: ER 20:07
DX: R10.11 Right upper quadrant pain (principal); R11.2 Nausea with vomiting, unspecified; F17.210 Nicotine dependence, cigarettes, uncomplicated; I10 Essential (primary) hypertension
CPT/HCPCS: 74176; 80048; 80076; 83690; 85027; 96374; 96375; 99284; J1885; J2405; J7030

== ENCOUNTER → 2019-08-16 | Day surgery (SDC) | payer MEDICAID ==
[~2019-08-16] MED LIST: ACETAMINOPHEN 1,000 MG/100 ML BTL IVPB ONE; DEXAMETHASONE 4 MG/ML 1ML VIAL IVP ONE; FAMOTIDINE 20MG TABLET PO ONE; FENTANYL PF 100MCG/2ML VIAL IV ONE; GLYCOPYRROLATE 0.2 MG/ML ML IV ONE; HYDROCODONE/APAP 5/325MG TABLET PO ONE; LABETALOL HCL 5MG/ML, 20ML VIAL IV ONE; LIDOCAINE 2% MDV (20MG/ML) 20ML VIAL IV ONE; MECLIZINE 25 MG TABLET PO ONE; METOCLOPRAMIDE 10 MG TABLET PO ONE; MIDAZOLAM HCL 2MG/2ML VIAL IV ONE; NEOSTIGMINE 1 MG/1 ML,10ML VIAL IV ONE; ONDANSETRON HCL IV 4 MG/2 ML VIAL IVP ONE; ONDANSETRON HCL IV 4 MG/2 ML VIAL IVP PRN; PROPOFOL 10 MG/ML VIAL IV ONE; RINGERS SOLUTION,LACTATED 1,000 ML IV ONE; ROCURONIUM BROMIDE 50MG/5ML VIAL IV ONE; SUCCINYLCHOLINE 20 MG/ML 10ML IVP ONE
[2019-08-16] MEDS: HYDROMORPHONE HCL 2 MG/ML VIAL IVP PRN ×2 (11:30→11:33)
--- NOTE | 2019-08-17 06:01 | Operative Note ---
DATE OF SURGERY: 08/16/2019 SURGEON: Tree Gaspar DO PREOPERATIVE DIAGNOSIS: Chronic cholecystitis. POSTOPERATIVE DIAGNOSIS: Chronic cholecystitis. OPERATION: Laparoscopic cholecystectomy. INDICATION: The patient is a 39-year-old female who presented to the ER over the weekend with ongoing right subcostal postprandial pain. Imaging studies revealed a contracted gallbladder. She had extreme pain with the ultrasound. She also underwent a CT. Laboratory values appeared normal. We did discuss cholecystectomy versus medical management. She desired surgical intervention. Risks include but are not limited to bleeding, infection, ductal injury, possible conversion to open, postoperative bile leak. She understood this fully. PROCEDURE: Thereafter, consent was signed and questions answered. She was taken to the operating room and placed in a supine position. General anesthesia was administered per the department of anesthesia. The patient's abdomen was prepped and draped in the usual sterile fashion. The infraumbilical region was anesthetized with a total of 5 mL of 0.25% Sensorcaine with epinephrine. A 2 cm infraumbilical incision was made. This was carried down to the anterior rectus fascia. This was incised. [place] clamps were placed on the fascial edges and brought up into the wound. Stay sutures of 0 Vicryl were placed. Posterior rectus sheath was identified and incised. The peritoneal cavity was entered bluntly. I did place a bariatric balloon [place] due to her morbid obesity. Adequate pneumoperitoneum was established. The patient was rotated into reverse Trendelenburg with rotation to left. Additional 5 mm epigastric and two 5 mm right subcostal ports were placed. The gallbladder was identified. Dense omental adhesions which were swept down. The gallbladder was retracted in a cephalad and lateral direction opening up the angle of [place]. The hepatocystic triangle was thoroughly dissected out. There was no aberrant anatomy, no posterior ductal structures. The cystic duct and cystic artery were clearly identified. Each one was doubly clipped and cut in a standard fashion. Gallbladder essentially peeled off the liver bed. This was placed in an EndoCatch bag and brought out through the umbilical port. Right upper quadrant was rechecked and found to be hemostatic. No bleeding. No bile leaking. No bowel injury noted. The patient was leveled out. The pneumoperitoneum was released. All ports were removed. The fascia was closed with 0 Vicryl in a [id number] fashion. The skin at all ports was closed with 4-0 Vicryl. The patient was taken to the recovery room in stable condition. FINDINGS AT THE TIME OF SURGERY: Chronic cholecystitis. MTDD
== END | disposition home or self-care (01) ==
LOC: SUR 08:53
PROVIDERS: ATTEND Surgery
DX: K81.1 Chronic cholecystitis (principal); I10 Essential (primary) hypertension; M32.9 Systemic lupus erythematosus, unspecified; G40.909 Epilepsy, unspecified, not intractable, without status epilepticus; M06.9 Rheumatoid arthritis, unspecified; K21.9 Gastro-esophageal reflux disease without esophagitis; K58.8 Other irritable bowel syndrome; C53.9 Malignant neoplasm of cervix uteri, unspecified
CPT/HCPCS: J0330; J2405; J2710; J7120

== ENCOUNTER 2019-08-22 16:01 | Emergency (ER) | payer MEDICAID ==
[2019-08-22] MEDS ORDERED: ONDANSETRON 4 MG ODT TABLET SL ONE (16:19)
--- NOTE | 2019-08-22 16:27 | Emergency Department Record ---
History of Present Illness - General Chief Complaint: Wound, check Stated Complaint: SURGICAL WOUND OPENING/ABD Time Seen by Provider: 08/22/19 16:08 Source: Patient Mode of arrival: Ambulatory Limitations: No limitations - History of Present Illness Initial Comments: The patient is here for a wound recheck. She had her GB removed here [address] Gaspar and today the umbilical wound did open up about 1.5 cm's. There presently is no pain, drainage or any swelling around the wound with no erythema or tenderness. The patient also states she has been persistently vomiting for about 2 weeks. MD Complaint: Wound re-check Onset/Timin -: Days(s) Initial Visit For: Other Returns Today for: Wound recheck Symptoms Since Prior Visit: Other - Related Data Previous Rx's Medication Instructions Recorded Ondansetron [Zofran Odt] 4 mg PO Q8H #15 tab.rapdis 08/12/19 Allergies Allergy/AdvReac Type Severity Reaction Status Date / Time levofloxacin [From Levaquin] Allergy SWELLING Verified 08/22/19 16:06 (GENERAL) Penicillins Allergy ANAPHYLAXIS Verified 08/22/19 16:06 clarithromycin [From Biaxin] AdvReac VOMITING Verified 08/22/19 16:06 Travel/Exposure Screening - Travel/Exposure Within Last 30 Days Have you traveled within the last 30 days?: No - Travel/Exposure Within Last Year Have you traveled outside the [place] in the last year?: No - Additonal Travel/Exposure Details Have you been exposed to anyone with a communicable illness?: No - Travel Symptoms Symptom Screening: None Review of Systems Constitutional: Denies: Chills, Fever Eyes: Denies: Eye discharge ENT: Denies: Congestion Respiratory: Denies: Cough, Dyspnea Past Medical History - SOCIAL HISTORY Smoking Status: Light tobacco smoker (<10/day) Alcohol Use: None Drug Use: None - RESPIRATORY Hx Respiratory Disorders: Yes Hx Asthma: Yes (childhood) - CARDIOVASCULAR Hx Cardio Disorders: Yes Hx Hypertension: Yes (CONTROLLED WITH MEDS) - NEURO Hx Neuro Disorders: Yes Hx of Migraines: Yes (HX OF) Hx Seizures: Yes (LAST SEIZURE 2014) - GI Hx GI Disorders: Yes Hx Abdominal Pain: Yes Hx Reflux: Yes Hx Irritable Bowel: Yes Hx Nausea/Vomiting: Yes Hx Ulcer: Yes - Hx Genitourinary Disorders: Yes Hx UTI: Yes Comment:: S/P HYST - ENDOCRINE Hx Endocrine Disorders: Yes - MUSCULOSKELETAL Hx Musculoskeletal Disorders: Yes Hx Arthritis: Yes (RA) Comment:: SLE LUPUS - PSYCH Hx Psych Problems: Yes Hx Anxiety: Yes Hx Depression: Yes - HEMATOLOGY/ONCOLOGY Hx Hematology/Oncology Disorders: Yes Hx Cancer: Yes (cervical) Hx Chemotherapy: Yes (2010) Family Medical History Any Significant Family History?: No Family Hx Comment (NOT TO BE USED IN PLACE OF ITEMS BELOW): denies Physical Exam - General General Appearance: Alert, Oriented x3, Cooperative, No acute distress - Head Head exam: Atraumatic, Normocephalic, Normal inspection - Eye Eye exam: Normal appearance, PERRL - Neck Neck exam: Normal inspection, Full ROM. negative: Tenderness - Respiratory Respiratory exam: Normal lung sounds bilaterally. negative: Respiratory distress - Cardiovascular Cardiovascular Exam: Regular rate, Normal rhythm, Normal heart sounds - GI/Abdominal GI/Abdominal exam: Soft, Normal bowel sounds, Other (The umbilical wound is very slightly open about 1.5 cms. There is no surrounding erythema, tenderness or swelling.). negative: Rebound, Rigid, Tenderness (There is no abdominal tenderness on exam.) - Extremities Extremities exam: Normal inspection, Full ROM, Normal capillary refill. negative: Tenderness - Neurological Neurological exam: Alert. negative: Motor sensory deficit Course Vital Signs 08/22/19 16:09 Temperature 98.5 F Pulse Rate 96 H Respiratory 20 Rate Blood Pressure 116/82 Pulse Ox 98 - Reevaluation(s) Reevaluation #1: The patient is doing a lot better at this time. I did discuss the case with Dr. Gaspar and he would like me to steri strip the wound and he will see the patient in the office in 1 week as planned. The patient is aware of the plan and will comply. 08/22/19 17:48 Reevaluation #2: I did cleanse the wound edges with alcohol and did place steri strips to get the wound closed. 08/22/19 17:57 Medical Decision Making - Data Complexity MDM Data: Labs Ordered and/or Reviewed - Lab Data Result diagrams: 08/22/19 16:28 08/22/19 16:28 Disposition Disposition: Discharge Clinical Impression: Postoperative wound closure planning Disposition: Home, Self-Care Condition: (2) Stable Instructions: Wound Healing and Your Diet (ED) Additional Instructions: Please keep the area dry for 3 days and please see Dr. Gaspar next week as planned. Please return to the ER for any worsening issues or problems. Forms: Patient Portal Access Time of Disposition: 17:45 Quality - Quality Measures Quality Measures: N/A - Blood Pressure Screening View Details: Yes Does Patient Have Any of the Following: No Blood Pressure Classification: Pre-Hypertensive BP Reading Systolic Measurement: 116 Diastolic Measurement: 82 Screening for High Blood Pressure: < Pre-Hypertensive BP, F/U Documented > [G8950] Pre-Hypertensive Follow-up Interventions: Referral to alternative/primary care provider.
[2019-08-22 16:38] LABS: ABSOLUTE NEUTROPHIL COUNT 4.04; BASO % 0.3 % (0-6); EOS % 5.4 % (0-6); GRAN % 51.6 % (47-80); HEMATOCRIT 43.3 % (35.0-47.0); HEMOGLOBIN 13.5 gm/dl (11.6-16.0); LYMPH % 33.2 % (16-45); MEAN CELL VOLUME 85.9 fl (81-97); MEAN CORPUSCULAR HEMOGLOBIN 26.8 pg (27-33); MEAN CORPUSCULAR HGB CONC 31.2 g/dl (32-36); MEAN PLATELET VOLUME 9.7 fl (7.4-10.4); MONO % 9.5 % (0-9); PLATELET COUNT 280 K/uL (130-400); RED BLOOD COUNT 5.04 M/uL (3.80-5.40); RED CELL DISTRIBUTION WIDTH 14.6 % (11.5-14.5); WHITE BLOOD COUNT W/O DIFF 7.8 K/uL (4.2-12.2)
[2019-08-22 16:50] LABS: BLOOD UREA NITROGEN 19 mg/dL (6-20); EST GLOMERULAR FILTRATION RATE > 60 mL/min
[2019-08-22 16:51] LABS: LIPASE 53 U/L (13-60); TOTAL PROTEIN 6.6 g/dL (6.6-8.7)
[2019-08-22 16:53] LABS: GLUCOSE,RANDOM 116 mg/dL (74-109)
[2019-08-22 16:55] LABS: ALBUMIN 3.7 g/dL (4.0-5.0); ALT/SGPT 39 U/L (<33); AST/SGOT 19 U/L (10.0-35.0)
[2019-08-22 16:56] LABS: ALKALINE PHOSPHATASE 67 U/L (35-104)
[2019-08-22 17:00] LABS: BILIRUBIN,DIRECT < 0.2 mg/dL (0-0.3)
== END 2019-08-22 18:19 | disposition home or self-care (01) ==
LOC: ER 16:01
DX: T81.31XA Disruption of external operation (surgical) wound, not elsewhere classified, initial encounter (principal); R11.10 Vomiting, unspecified; I10 Essential (primary) hypertension; F17.210 Nicotine dependence, cigarettes, uncomplicated; Y83.8 Other surgical procedures as the cause of abnormal reaction of the patient, or of later complication, without mention of misadventure at the time of the procedure
CPT/HCPCS: 80048; 80076; 83690; 85025; 99284